=== PATIENT | female | born 1930 | race Caucasian/White ===

== ENCOUNTER 2018-12-03 06:36 | Inpatient (IN) | payer OTHER, MEDICARE ==
--- OUTSIDE RECORDS SUMMARY | 2018-12-03 06:38 | XMS REPORT ---
:1930 [facility] Address [address] [place] [address] Dr. Soto. [address] [place] [id number] Care Team Providers Name Role Phone Unavailable Unavailable Unavailable Problems This patient has no known problems. Allergies, Adverse Reactions, Alerts This patient has no known allergies or adverse reactions. Medications This patient has no known medications.
[2018-12-03 07:32] LABS: Absolute Lymphocytes (CBC) 0.6 K/uL (0.7-4.9); Absolute Monocytes 1.1 K/uL (0.1-1.3); Absolute Neutrophil 19.6 K/uL (1.8-8.0); Basophils % 0.4 % (0-1.3); Hematocrit 40.1 % (36.0-45.0); Lymphocytes % 2.9 % (15.3-44.8); Monocytes % 5.3 % (3.3-12.3); RBC Red Blood Cell Count 4.53 M/uL (3.86-4.86)
[2018-12-03] MEDS ORDERED: MORPHINE 2 MG/ML SYR ONE ×2 (07:40→09:23)
[2018-12-03 07:47] LABS: Albumin 3.8 g/dL (3.4-5.0); Bilirubin Direct 0.1 mg/dL (0-0.2); Bilirubin Total 0.5 mg/dL (0.2-1.0); Magnesium 2.1 mg/dL (1.8-2.4); Potassium 4.5 mmol/L (3.5-5.1); Protein, Total 7.7 g/dL (6.4-8.2); Troponin (Emerg Dept Use Only) 0.07 ng/mL (0.0-0.045)
[2018-12-03] MEDS ORDERED: PIPER/TAZO/NS 3.375gm 3.375 GM/100 ML BAG ONE (08:11)
[2018-12-03] MEDS ORDERED: NA CHLORIDE 0.9% 1,000 ML ONE (08:12)
--- NOTE | 2018-12-03 08:15 | RAD REPORT ---
EXAM DESCRIPTION: RAD - Chest Single View - 12/03/2018 6:52 am CLINICAL HISTORY: SOB Chest pain. COMPARISON: CHEST SINGLE VIEW dated 12/01/2014; CHEST SINGLE VIEW dated 11/30/2014; CHEST SINGLE VIEW dated 05/10/2013; CHEST SINGLE VIEW dated 05/09/2013 FINDINGS: Portable technique limits examination quality. The lungs are mildly emphysematous but grossly clear. The heart is upper limit normal size. No displa kelin fractures.Aortic atherosclerosis. IMPRESSION: Prominent COPD.
--- NOTE | 2018-12-03 08:17 | RAD REPORT ---
EXAM DESCRIPTION: CT - Abdomen Pelvis Wo Contrast - 12/03/2018 8:09 am CLINICAL HISTORY: Abdominal pain. ABD PAIN COMPARISON: CT ABD PELVIS W CONTRAST dated 11/27/2012 TECHNIQUE: CT imaging of the abdomen and pelvis was performed without contrast. Solid organ, bowel a nd vascular assessment is limited due to lack of IV and oral contrast. All CT scans are performed using dose optimization technique as appropriate and may include automated exposure control or mA/KV adjustment according to patient size. FINDINGS: Mild linear subsegmental atelectasis is present both lung bases. Pneumobilia is present in the liver with cholecystectomy clips seen. No aggressive liver lesion. The spleen, adrenal glands and kidneys are within normal limits. No hydronephrosis.Peripancreatic fat str anding is seen, greatest in the region of the pancreatic head and duodenal C-loop, suggesting acute p ancreatitis. No fluid collection to suggest pseudocyst. No bowel obstruction or free air. Moderate left lower quadrant small bowel parastomal hernia is seen. Scattered colonic diverticulosis. Aortic atherosclerosis. The osseous structures are within normal limits. IMPRESSION: Mild to moderate acute pancreatitis suspected. Correlation with amylase and lipase level s is advised. Cholecystectomy. A limited non-contrast examination was performed as detailed.
--- NOTE | 2018-12-03 08:26 | ER ---
Nurse's Notes [facility] Name: Lexi Wagner Age: 88 yrs Sex: Female : 1930 Arrival Date: 12/03/2018 Time: 06:37 Bed 6 Private MD: Diagnosis: Acute pancreatitis Presentation: 12/03 06:36 Presenting complaint: EMS states: Pt complaining of nausea and abdominal pain that ea started last night and got worse this morning. Transition of care: patient was not received from another setting of care. Onset of symptoms was December 03, 2018. Risk Assessment: Do you want to hurt yourself or someone else? Patient reports no desire to harm self or others. Initial Sepsis Screen: Does the patient meet any 2 criteria? No. Patient's initial sepsis screen is negative. Does the patient have a suspected source of infection? No. Patient's initial sepsis screen is negative. Care prior to arrival: None. 06:36 Method Of Arrival: EMS: [facility] ea 06:36 Acuity: LOKESH 3 ea Historical: - Allergies: 06:52 promethazine HCl; ea 06:52 meperidine HCl; ea - Home Meds: 06:52 losartan oral oral [Active]; levothyroxine oral for Hypothyroidism [Active]; ea - PMHx: 06:52 Hypothyroidism; Hypertension; ea - PSHx: 06:52 Cholecystectomy; Mastectomy, Left; Mastectomy, Right; Foot; Melanoma removed; Neck; ea Colostomy; - Immunization history:: Adult Immunizations up to date. - Social history:: Smoking status: Patient/guardian denies using tobacco. - Ebola Screening: : No symptoms or risks identified at this time. Screenin:55 Abuse screen: Denies threats or abuse. Nutritional screening: No deficits noted. ea Tuberculosis screening: No symptoms or risk factors identified. Fall Risk IV access (20 points). Assessment: 07:10 General: Appears uncomfortable, Behavior is calm, cooperative. Pain: Complains of pain aa5 in left upper quadrant and right upper quadrant Pain does not radiate. Pain currently is 10 out of 10 on a pain scale. Quality of pain is described as crampy, Pain began last night. Is continuous. Neuro: Level of Consciousness is awake, alert, obeys commands, Oriented to person, place, time, situation. Cardiovascular: Heart tones S1 S2 present Rhythm is sinus bradycardia. Respiratory: Airway is patent Respiratory effort is even, unlabored, Respiratory pattern is regular, symmetrical, Breath sounds are clear bilaterally. GI: Abdomen is round Colostomy site is clean and dry. Ostomy appliance is intact. Soft brown stool noted, pt denies diarrhea. Bowel sounds present X 4 quads. Abd is soft X 4 quads Abdomen is tender to palpation in right upper quadrant and left upper quadrant Reports nausea, vomiting. : No signs and/or symptoms were reported regarding the genitourinary system. EENT: No signs and/or symptoms were reported regarding the EENT system. Derm: Skin is pink, warm \\T\\ dry. Musculoskeletal: Range of motion: intact in all extremities. 07:30 Reassessment: Lactate recollected and sent to lab . aa5 07:38 Reassessment: Patient is alert, oriented x 3, equal unlabored respirations, skin aa5 warm/dry/pink. Pt encouraged to drink CT oral contrast. Pt states "I will try in a minute but I just can't do it right now". Pt notified of wait time for CT after finishing CT oral contrast, pt verbalized understanding. . 08:14 Reassessment: Patient is alert, oriented x 3, equal unlabored respirations, skin aa5 warm/dry/pink. Patient states feeling better. Pt back from CT scan (CT scan changed to no oral contrast) . Pain: Pain currently is 7 out of 10 on a pain scale. 08:32 Reassessment: Pt appears comfortable, resting in bed with eyes closed, respirations aa5 even and unlabored, skin is pink/warm/dry . 09:14 Reassessment: Patient and/or family updated on plan of care and expected duration. Pain aa5 level reassessed. Patient is alert, oriented x 3, equal unlabored respirations, skin warm/dry/pink. Awaiting room assignment. Pt states "I am hurting again". Rates pain a 9/10 on a pain scale. PILE DRIVING TECHNICIAN was notified and morphine was ordered. . Vital Signs: 06:36 BP 151 / 69; Pulse 60; Resp 21; Temp 98; Pulse Ox 95% on R/A; Weight 68.04 kg; Height 5 ea ft. 5 in. (165.10 cm); 07:38 BP 125 / 59; Pulse 59; Resp 18 S; Pulse Ox 99% on 2 lpm NC; aa5 08:33 BP 141 / 58; Pulse 59; Resp 16 S; Pulse Ox 98% on 2 lpm NC; aa5 06:36 Body Mass Index 24.96 (68.04 kg, 165.10 cm) ea 06:36 pt placed on 2 L of O2 per nasal cannula ea ED Course: 06:26 Patient has correct armband on for positive identification. Placed in gown. Bed in low ea position. Call light in reach. Side rails up X2. 06:36 Arm band placed on right wrist. Patient placed in an exam room, on a stretcher, on ea pulse oximetry. 06:37 Patient arrived in ED. am2 06:40 Della Marie FNP-C is PHCP. snw 06:40 Jose G Rankin MD is Attending Physician. snw 06:40 Inserted saline lock: 20 gauge in right forearm, using aseptic technique. Blood rr5 collected. 06:48 Triage completed. ea 06:50 X-ray completed. Portable x-ray completed in exam room. Patient tolerated procedure sg4 well. 06:52 XRAY Chest (1 view) In Process Unspecified. EDMS 07:00 Report received from JULIET Sorto and Abelardo RN. aa5 07:11 Miran Gibson, JULIET is Primary Nurse. aa5 08:10 Abdomen In Process Unspecified. EDMS 08:25 Ihsan Bolaños MD is Hospitalizing Provider. snw 09:35 No provider procedures requiring assistance completed. Patient admitted, IV remains in aa5 place. Administered Medications: 07:33 Drug: morphine 2 mg Route: IVP; Site: right forearm; aa5 07:38 Follow up: Response: No adverse reaction aa5 08:15 Drug: Zosyn 3.375 grams Route: IVPB; Infused Over: 60 mins; Site: right forearm; aa5 09:14 Follow up: Response: No adverse reaction; IV Status: Completed infusion aa5 08:27 Drug: NS 0.9% 1000 ml Route: IV; Rate: 75 ml/hr; Site: right forearm; aa5 09:30 Follow up: IV Status: Infusion continued upon admission aa5 09:14 Drug: morphine 2 mg Route: IVP; Site: right forearm; aa5 09:30 Follow up: Response: No adverse reaction; Pain is decreased aa5 Point of Care Testing: Blood Glucose: 07:13 Blood Glucose: 158 mg/dL; aa5 Ranges: Outcome: 08:25 Decision to Hospitalize by Provider. snw 09:35 Admitted to Med/surg accompanied by tech, via stretcher, with oxygen, with chart, aa5 Report called to JULIET Arboleda 09:35 Condition: stable 09:35 Instructed on the need for admit, Demonstrated understanding of instructions. 09:40 Patient left the ED. aa5 Signatures: Dispatcher [employer] EDMS Della Marie, WILDLIFE ECOLOGIST-C WILDLIFE ECOLOGIST-Csnw Mirna Gibson, RN RN aa5 Eva Albrecht Elena, RN RN Luz Maria Sandy 4 Abelardo Joya, RN RN rr5 Corrections: (The following items were deleted from the chart) 09:44 09:43 Patient left the ED. aa5 aa5
--- NOTE | 2018-12-03 08:26 | EDPHYS ---
Physician Documentation [facility] Name: Lexi Wagner Age: 88 yrs Sex: Female : 1930 Arrival Date: 12/03/2018 Time: 06:37 Bed 6 Private MD: Jose G Isaac HPI: 12/03 06:46 This 88 yrs old Female presents to ER via Unassigned with complaints of snw Abdominal Pain. 06:46 The patient presents with abdominal pain in the upper abdomen. Onset: The snw symptoms/episode began/occurred suddenly, last night. The symptoms do not radiate. Associated signs and symptoms: Pertinent positives: nausea and vomiting. The symptoms are described as constant. Modifying factors: The symptoms are alleviated by nothing. Severity of pain: At its worst the pain was moderate. The patient has experienced similar episodes in the past. The patient has not recently seen a physician, the patient's primary care provider is Dr. Garcia. hx of cody, colostomy, mastectomy. Pt denies fever, changes in consistency of stool from colostomy, bleeding. Historical: - Allergies: 06:52 promethazine HCl; ea 06:52 meperidine HCl; ea - Home Meds: 06:52 losartan oral oral [Active]; levothyroxine oral for Hypothyroidism [Active]; ea - PMHx: 06:52 Hypothyroidism; Hypertension; ea - PSHx: 06:52 Cholecystectomy; Mastectomy, Left; Mastectomy, Right; Foot; Melanoma removed; Neck; ea Colostomy; - Immunization history:: Adult Immunizations up to date. - Social history:: Smoking status: Patient/guardian denies using tobacco. - Ebola Screening: : No symptoms or risks identified at this time. ROS: 06:46 Constitutional: Negative for fever, chills, and weight loss, Eyes: Negative for injury, snw pain, redness, and discharge, ENT: Negative for injury, pain, and discharge, Neck: Negative for injury, pain, and swelling, Cardiovascular: Negative for chest pain, palpitations, and edema, Respiratory: Negative for shortness of breath, cough, wheezing, and pleuritic chest pain, Back: Negative for injury and pain, : Negative for injury, bleeding, discharge, and swelling, MS/Extremity: Negative for injury and deformity, Skin: Negative for injury, rash, and discoloration, Neuro: Negative for headache, weakness, numbness, tingling, and seizure. 06:46 Abdomen/GI: Positive for abdominal pain, nausea, vomiting. Exam: 06:43 Head/Face: Normocephalic, atraumatic. Eyes: Pupils equal round and reactive to light, snw extra-ocular motions intact. Lids and lashes normal. Conjunctiva and sclera are non-icteric and not injected. Cornea within normal limits. Periorbital areas with no swelling, redness, or edema. ENT: Nares patent. No nasal discharge, no septal abnormalities noted. Tympanic membranes are normal and external auditory canals are clear. Oropharynx with no redness, swelling, or masses, exudates, or evidence of obstruction, uvula midline. Mucous membranes moist. Neck: Trachea midline, no thyromegaly or masses palpated, and no cervical lymphadenopathy. Supple, full range of motion without nuchal rigidity, or vertebral point tenderness. No Meningismus. Chest/axilla: Normal chest wall appearance and motion. Nontender with no deformity. No lesions are appreciated. 06:43 Back: No spinal tenderness. No costovertebral tenderness. Full range of motion. MS/ Extremity: Pulses equal, no cyanosis. Neurovascular intact. Full, normal range of motion. Neuro: Awake and alert, GCS 15, oriented to person, place, time, and situation. Cranial nerves II-XII grossly intact. Motor strength 5/5 in all extremities. Sensory grossly intact. Cerebellar exam normal. Normal gait. 06:43 Constitutional: The patient appears alert, anxious, frail, pale. 06:43 Cardiovascular: Rate: bradycardic. 06:43 Respiratory: the patient does not display signs of respiratory distress, Respirations: shallow respirations, that is mild, Breath sounds: are clear throughout. 06:43 Abdomen/GI: Inspection: distension, that is moderate, in the right lower quadrant and left lower quadrant, Bowel sounds: diminished, in all quadrants, Palpation: mild abdominal tenderness, in the right upper quadrant and left upper quadrant, + colostomy. 06:43 Skin: Appearance: Color: pale. Vital Signs: 06:36 BP 151 / 69; Pulse 60; Resp 21; Temp 98; Pulse Ox 95% on R/A; Weight 68.04 kg; Height 5 ea ft. 5 in. (165.10 cm); 07:38 BP 125 / 59; Pulse 59; Resp 18 S; Pulse Ox 99% on 2 lpm NC; aa5 08:33 BP 141 / 58; Pulse 59; Resp 16 S; Pulse Ox 98% on 2 lpm NC; aa5 06:36 Body Mass Index 24.96 (68.04 kg, 165.10 cm) ea 06:36 pt placed on 2 L of O2 per nasal cannula ea MDM: 06:44 Patient medically screened. [facility] 08:26 Data reviewed: vital signs, nurses notes. Data interpreted: Pulse oximetry: on room air snw is 99 %. Interpretation: normal. Counseling: I had a detailed discussion with the patient and/or guardian regarding: the historical points, exam findings, and any diagnostic results supporting the discharge/admit diagnosis, lab results, radiology results, the need for further work-up and treatment in the hospital. Physician consultation: Ihsan Bolaños MD was called at 08:26, regarding admission, to the telemetry unit. 12/03 06:42 Order name: Basic Metabolic Panel; Complete Time: 07:48 snw 12/03 06:42 Order name: CBC with Diff; Complete Time: 09:33 snw 12/03 06:42 Order name: LFT's; Complete Time: 07:48 snw 12/03 06:42 Order name: Magnesium; Complete Time: 07:48 snw 12/03 06:42 Order name: NT PRO-BNP; Complete Time: 07:48 snw 12/03 06:42 Order name: PT-INR; Complete Time: 08:36 snw 12/03 06:42 Order name: Troponin (emerg Dept Use Only); Complete Time: 07:48 snw 12/03 06:42 Order name: XRAY Chest (1 view); Complete Time: 08:15 snw 12/03 06:42 Order name: Lipase; Complete Time: 07:48 snw 12/03 06:42 Order name: Blood Culture Adult (2) snw 12/03 06:42 Order name: Lactate; Complete Time: 08:01 snw 12/03 06:42 Order name: Procalcitonin; Complete Time: 08:15 snw 12/03 07:49 Order name: Manual Differential; Complete Time: 09:33 EDMS 12/03 06:42 Order name: EKG; Complete Time: 06:43 snw 12/03 06:42 Order name: Cardiac monitoring; Complete Time: 07:10 snw 12/03 06:42 Order name: EKG - Nurse/Tech; Complete Time: 07:26 snw 12/03 06:42 Order name: IV Saline Lock; Complete Time: 07:10 snw 12/03 06:42 Order name: Labs collected and sent; Complete Time: 07:10 snw 12/03 06:42 Order name: O2 Per Protocol; Complete Time: 07:05 snw 12/03 06:42 Order name: O2 Sat Monitoring; Complete Time: 07:05 snw 12/03 06:42 Order name: NPO; Complete Time: 07:05 snw 12/03 06:42 Order name: FSBS; Complete Time: 07:10 snw 12/03 08:09 Order name: Abdomen ; Complete Time: 08:19 EDMS Administered Medications: 07:33 Drug: morphine 2 mg Route: IVP; Site: right forearm; aa5 07:38 Follow up: Response: No adverse reaction aa5 08:15 Drug: Zosyn 3.375 grams Route: IVPB; Infused Over: 60 mins; Site: right forearm; aa5 09:14 Follow up: Response: No adverse reaction; IV Status: Completed infusion aa5 08:27 Drug: NS 0.9% 1000 ml Route: IV; Rate: 75 ml/hr; Site: right forearm; aa5 09:30 Follow up: IV Status: Infusion continued upon admission aa5 09:14 Drug: morphine 2 mg Route: IVP; Site: right forearm; aa5 09:30 Follow up: Response: No adverse reaction; Pain is decreased aa5 Point of Care Testing: Blood Glucose: 07:13 Blood Glucose: 158 mg/dL; aa5 Ranges: Critical Glucose Levels:Adult <50 mg/dl or >400 mg/dl <40 mg/dl or >180 mg/dl Disposition: 12/03/18 08:25 Hospitalization ordered by Ihsan Bolaños for Inpatient Admission. Preliminary diagnosis is Acute pancreatitis. - Bed requested for Telemetry/MedSurg (Inpatient). - Status is Inpatient Admission. aa5 - Condition is Stable. - Problem is new. - Symptoms are unchanged. UTI on Admission? No Addendum: 12/05/2018 11:18 Co-signature as Attending Physician, Jose G Rankin MD I agree with the assessment and c bhatt plan of care. Signatures: Dispatcher [employer] EDAR Kiki Brunner, RN Jose G An MD MD cha Therrien, Shelly, PROFESSIONAL BASS FISHERMAN-C PROFESSIONAL BASS FISHERMAN-Csnw Mirna Gibson, RN RN aa5 Noreen Dunbar RN RN ea Corrections: (The following items were deleted from the chart) 12/03 08:09 06:43 Abdomen Pelvis W Con+CT.RAD.BRZ ordered. EDAR EDMS 08:34 06:43 Abdomen Limited+US.RAD.BRZ ordered. EDAR EDMS 09:25 08:25 Hospitalization Ordered by Ihsan Bolaños MD for Inpatient Admission. Preliminary diagnosis is Acute pancreatitis. Bed requested for Telemetry/MedSurg (Inpatient). Status is Inpatient Admission. Condition is Stable. Problem is new. Symptoms are unchanged. UTI on Admission? No. snw 09:43 09:25 12/03/2018 08:25 Hospitalization Ordered by Ihsan Bolaños MD for Inpatient aa5 Admission. Preliminary diagnosis is Acute pancreatitis. Bed requested for Telemetry/MedSurg (Inpatient). Status is Inpatient Admission. Condition is Stable. Problem is new. Symptoms are unchanged. UTI on Admission? No.
[2018-12-03 08:32] LABS: Protime INR 1.19
--- NOTE | 2018-12-03 09:06 | P.HP ---
Certification for Inpatient Patient admitted to: Inpatient With expected LOS: >2 Midnights Practitioner: I am a practitioner with admitting privileges, knowledge of patient current condition, hospital course, and medical plan of care. Services: Services provided to patient in accordance with Admission requirements found in Title 42 Section 412.3 of the Code of Federal Regulations Patient History Date of Service: 12/03/18 Primary Care Provider: Dr. Quarles Reason for admission: Abdominal pain History of Present Illness: This is a 88 yr old female with a pmh of colectomy w/ colostomy bag, HTN, hx of breast cancer s/p mastectomy, s/p cholecystectomy in 2007 admitted for acute abdominal pain. Per patient, pain started last night. Describes it as sharp, acute, started at rest, across epigastric area w/ no radiation. Associated with nausea and vomiting. Denies any increased sob, chest pain, dizziness, headache, vision changes, syncopal/presyncopal episodes, diarrhea/constipation or complaints. In the ER: she was bradycardic (asymptomatic), other vital signs were stable. Labs were remarkable for a WBC count of 21.4 with a left shift, sodium of 135, creatinine of 1.67, [place]rop[place] 0.07[place] [address]. Her procal and lactate were normal. Her CT scan was remarkable for mild subsegmental atelectasis and mild to moderate pancreatitis. She recieved IV zosyn prior to her non contrast CT, IVF and IV morphine 2 mg. Zofran was held to her bradycardia and she is allergic to phenergan. At the time of my exam, pt was AAOx3, in mild-mod distress, did have some active non bilious non bloody vomiting. She was bradycardic (still asymptomatic ) and otherwise vital signs were stable. Allergies promethazine HCl [From Phenergan] Allergy (Mild, Verified 11/16/12 09:53) Shortness of breath meperidine HCl [From Demerol] Allergy (Unverified 12/16/14 12:31) Vomiting Phenergan-Codeine Allergy (Uncoded 12/16/14 12:31) seizures Home medications list reviewed: Yes Home Medications: Arformoterol Tartrate [Brovana] 15 mcg IH BID 11/16/12 Budesonide [Pulmicort] 0.5 mg IH BID 11/16/12 Levothyroxine [Synthroid*] 0.112 mg PO [id number] 11/16/12 Albuterol Inhaler [Ventolin Inhaler*] 2 puff IH Q6H PRN 05/09/13 Diltiazem HCl [Taztia Xt] 360 mg PO DAILY 05/09/13 Losartan/Hydrochlorothiazide [Losartan-Hctz 100-25 mg Tab] 1 each PO DAILY 05/09 levoFLOXacin [Levaquin*] 250 mg PO DAILY #7 tab 12/03/14 - Past Medical/Surgical History Diabetic: No -: colon ruptured w/ colostomy -: COPD idiopathic -: hypothyroid -: breast CA -: DVT -: melanoma -: colon rescetion, -: cheri masectomy -: ankle refusion -: cody - Social History Smoking Status: Never smoker Alcohol use: No CD- Drugs: No Caffeine use: No Review of Systems 10-point ROS is otherwise unremarkable Physical Examination - Physical Exam General: Alert, Oriented x3, Mild distress, Moderate distress HEENT: Atraumatic, PERRLA, Mucous membr. moist/pink, EOMI, Sclerae nonicteric Neck: Supple, 2+ carotid pulse no bruit, No LAD, Without JVD or thyroid abnormality Respiratory: Clear to auscultation bilaterally, Normal air movement Cardiovascular: Normal S1 S2, Irregular heart rate/rhythm (Bradycardic) Gastrointestinal: Normal bowel sounds, Other (colostomy in place, with stool ( non bloody), stoma normal), Tenderness (across epigastric area), Guarding Musculoskeletal: No tenderness Integumentary: No rashes Neurological: Normal speech, Normal strength at 5/5 x4 extr, Normal tone, Normal affect - Studies Laboratory Data (last 24 hrs) 12/03/18 06:40: PT 14.0 H, INR 1.19 12/03/18 06:40: WBC 21.4 H*, Hgb 13.3, Hct 40.1, Plt Count 305 12/03/18 06:40: Sodium 135 L, Potassium 4.5, BUN 37 H, Creatinine 1.67 H, Glucose 155 H, Magnesium 2.1, Total Bilirubin 0.5, AST 28, ALT 26, Alkaline Phosphatase 82, Lipase 06998 H Female Exam - Breasts Breasts: Other (B/L mastectomy) Assessment and Plan - Problems (Diagnosis) (1) Acute pancreatitis Current Visit: Yes Status: Active (2) ZAN (acute kidney injury) Current Visit: Yes Status: Acute (3) Elevated troponin Current Visit: Yes Status: Acute (4) Hypertension Current Visit: Yes Status: Chronic Qualifiers: Hypertension type: essential hypertension Qualified Code(s): I10 - Essential (primary) hypertension (5) Hx of breast cancer Current Visit: Yes Status: Chronic (6) History of colon resection Current Visit: No Status: Chronic (7) Colostomy in place Current Visit: No Status: Chronic (8) s/p laparoscopic cholecystectomy Current Visit: No Status: Acute (9) COPD (chronic obstructive pulmonary disease) Onset Date: 12/03/14 Current Visit: No Status: Chronic Qualifiers: Chronic bronchitis type: unspecified (10) Hypothyroid Current Visit: Yes Status: Chronic Qualifiers: Hypothyroidism type: unspecified Qualified Code(s): E03.9 - Hypothyroidism , unspecified - Plan This is a 88 yr old female with: Acute pancreatitis Admit to floor with tele Keep NPO. Start IVF Pain control. Is able to tolerate morphine. Will continue low dose as need. Hold zofran d/t bradycardia, unable to give phenergan as pt allergic. No antibiotics at this time Monitor labs. Serial Lipase Elevated trops Likely 2/2 ZAN Will trend and monitor Denies any cp at this time Acute kidney injury Likely 2/2 hypovolemia from vomiting and decreased PO Will continue IVF Monitor via AM labs Avoid nephrotoxic agents Colon resection w/ colostomy Stable Continue colostomy care as normal COPD Stable; Continue oxygen as needed, breathing treatments as needed Hypothyroid Stable, continue home medications Hypertension Stable, will restart home medications once tolerating PO Will use IV agents if needed till then Breast ca hx w/ B/L Mastectomy Stable Hx of lap cody s/p acute cholocystitis DVT Prophylaxis: Lovenox GI Prophylaxis: Protonix IV till tolerating PO Diet: NPO Dispo: Admit to floor, pending symptomatic improvement. Discharge Plan: Home - Advance Directives Does patient have a Living Will: No Does patient have a Durable POA for Healthcare: Yes Time Spent Managing Pts Care (In Minutes): 55
[2018-12-03 09:32] LABS: Blood Morphology Comment NOT SEEN (NOT SEEN); Platelet Estimate ADEQ
[2018-12-03] MEDS ORDERED: IPRATROPIUM BROM 0.5MG/2.5ML NEB PRN (09:54)
[2018-12-03] MEDS ORDERED: NA CHLORIDE 0.9% 1,000 ML IV SCH (09:54)
[2018-12-03] MEDS ORDERED: ALBUTEROL 2.5 MG/3 ML NEB SOL NEB PRN (09:54)
[2018-12-03 10:06] VITALS: BMI 30.5
[2018-12-03] MEDS: ENOXAPARIN 30 MG/0.3 ML SQ SCH (11:20)
[2018-12-03] MEDS: NA CHLORIDE 0.9% 1,000 ML IV SCH ×2 (12:22→17:13)
[2018-12-03] MEDS: LOSARTAN POTASSIUM 50 MG TABLET PO SCH (17:12)
[2018-12-03 20:06] LABS: Urine Appearance CLEAR; Urine Bilirubin NEGATIVE (NEG); Urine Blood TRACE (NEG); Urine Color YELLOW; Urine Glucose NEGATIVE (NEG); Urine Protein 2+ (NEG); Urine Specific Gravity 1.025 (1.005-1.030); Urine Urobilinogen 0.2 mg/dL (0.2-1.0); Urine pH 6.5 (5.0-7.0)
[2018-12-03 20:36] LABS: Urine Bacteria <20 /HPF (<20); Urine Culture Reflex Order NOT NEEDED; Urine RBC <5 /HPF (NONE SEEN)
--- NOTE | 2018-12-03 20:53 | RAD REPORT ---
EXAM DESCRIPTION: US - Abdomen Exam Complete - 12/03/2018 8:46 pm CLINICAL HISTORY: Abdominal pain. acute pancreatitis COMPARISON: Abdomen Pelvis Wo Contrast dated 12/03/2018 FINDINGS: The liver is normal in size, shape and echotexture. No focal liver lesions or intrahepatic biliary dilatation is seen. Cholecystectomy. Common bile duct is mildly enlarged measuring 9 mm. Both kidneys are normal in size, shape and echotexture. No hydronephrosis, focal lesion of concern or perinephric fluid. The spleen is normal in size measuring 7 cm. The pancreas and aorta are obscured by bowel gas. The visualized aspects of the IVC are grossly normal. IMPRESSION: Cholecystectomy. Common bile duct measures 9 mm, considered upper limit of normal.
[2018-12-03] MEDS ORDERED: METOPROLOL TARTRATE 5 MG/5 ML INJ IV STA (20:57)
[2018-12-03] MEDS ORDERED: HYDROMORPHONE HCL 1 MG/ML INJ IV PRN (22:23)
[2018-12-03] MEDS: ONDANSETRON 4 MG/2 ML VIAL IV PRN (22:59)
[2018-12-04] MEDS ORDERED: HYDROMORPHONE HCL 1 MG/ML INJ IV PRN (00:18)
[2018-12-04] MEDS: METOPROLOL TARTRATE 5 MG/5 ML INJ IV PRN (05:09)
[2018-12-04 05:58] LABS: Absolute Lymphocytes (CBC) 0.8 K/uL (0.7-4.9); Absolute Monocytes 2.3 K/uL (0.1-1.3); Absolute Neutrophil 26.2 K/uL (1.8-8.0); Basophils % 0.1 % (0-1.3); Hematocrit 41.2 % (36.0-45.0); Lymphocytes % 2.8 % (15.3-44.8); MPV 10.1 fL (7.6-11.3); Monocytes % 7.9 % (3.3-12.3); RBC Red Blood Cell Count 4.58 M/uL (3.86-4.86)
[2018-12-04 06:20] LABS: Bilirubin Total 0.7 mg/dL (0.2-1.0); Potassium 3.6 mmol/L (3.5-5.1); Protein, Total 6.7 g/dL (6.4-8.2)
[2018-12-04] MEDS ORDERED: CEFOXITIN 1 GM in NA CHLORIDE 0.9% 50 ML IVPB SCH (07:00)
[2018-12-04] MEDS ORDERED: NA CHLORIDE 0.9% 1,000 ML IV SCH (07:00)
[2018-12-04] MEDS: LOSARTAN POTASSIUM 50 MG TABLET PO SCH (08:08)
[2018-12-04] MEDS: ENOXAPARIN 30 MG/0.3 ML SQ SCH (08:08)
[2018-12-04 08:11] LABS: Blood Morphology Comment NOT SEEN (NOT SEEN); Platelet Estimate ADEQ; Toxic Granulation PRESENT
[2018-12-04] MEDS: CEFOXITIN/SWI 1gm 1 GM/10 ML SYR IV SCH ×2 (10:28→22:25)
--- NOTE | 2018-12-04 10:48 | P.PN ---
Subjective Date of Service: 12/04/18 Primary Care Provider: Dr. Quarles Chief Complaint: Abdominal pain Subjective: No new changes (Still does not feel well. WBC increased since yesterday, 21 to 29K. IVFs at 125 cc/o with decreased BUN/Cr 37/1.7 to 35/1.2. But she has elevated Troponin I yesterday.) Review of Systems 10-point ROS is otherwise unremarkable General: Weakness, Malaise Gastrointestinal: Abdominal Pain (improved) Physical Examination - Vital Signs Temperature: 98.3 F Blood Pressure: 147/77 Pulse: 77 Respirations: 16 Pulse Ox (%): 97 - Physical Exam General: Alert, In no apparent distress, Oriented x3, Cooperative HEENT: Atraumatic, Normocephalic, PERRLA, EOMI Neck: Supple Respiratory: Normal air movement Gastrointestinal: No rebound, No guarding, Tenderness (mild at most) Neurological: Normal speech Assessment And Plan - Current Problems (Diagnosis) (1) Acute pancreatitis Current Visit: Yes Status: Active Comment: WBC increasing 21 to 29K. (2) ZAN (acute kidney injury) Current Visit: Yes Status: Acute Comment: Slowly improving with IVFs. (3) Elevated troponin Current Visit: Yes Status: Acute (4) Hypertension Current Visit: Yes Status: Chronic Qualifiers: Hypertension type: essential hypertension Qualified Code(s): I10 - Essential (primary) hypertension (5) History of colon resection Current Visit: No Status: Chronic - Plan REC: 1) check lipase 2) increase IVFs 3) check CXR 4) check EKG, echocardiogram with elevated Trop Is & consider cardiology consult 5) check U/A with increasing WBC
[2018-12-04] MEDS: Ringers Lactate 1,000 ML IV SCH ×2 (11:25→16:53)
--- NOTE | 2018-12-04 11:52 | RAD REPORT ---
EXAM DESCRIPTION: RAD - Chest Single View - 12/04/2018 11:35 am CLINICAL HISTORY: Shortness of breath COMPARISON: December 03 TECHNIQUE: AP portable chest image was obtained 1131 hours . FINDINGS: Baseline fibrotic lung changes are present. Patchy left lung base opacification present. P attern is not substantially different but can be monitored. Patient has scarring or atelectasis leiva e in the posterior left base on the prior day CT study. Heart and vasculature are normal. No measurable pleural effusion and no pneumothorax. No acute bony abnormality seen. No acute aortic findings suspected. IMPRESSION: No acute cardiopulmonary process. Chest findings are not substantially different from comparison. Left base can be monitored.
[2018-12-04] MEDS ORDERED: CEFOXITIN SODIUM 1 GM/VIAL IVPB SCH (12:00)
--- NOTE | 2018-12-04 17:29 | P.PN ---
Subjective Date of Service: 12/04/18 Primary Care Provider: Dr. Quarles Chief Complaint: Abdominal pain Subjective: Improving Patient seen and examined at bedside. Chart reviewed and case discussed with nursing staff. Pain slightly improved. Review of Systems 10-point ROS is otherwise unremarkable Physical Examination - Vital Signs Temperature: 97.6 F Blood Pressure: 175/79 Pulse: 89 Respirations: 18 Pulse Ox (%): 93 Assessment And Plan - Current Problems (Diagnosis) (1) Acute pancreatitis Current Visit: Yes Status: Active (2) ZAN (acute kidney injury) Current Visit: Yes Status: Acute (3) Elevated troponin Current Visit: Yes Status: Acute (4) Hypertension Current Visit: Yes Status: Chronic Qualifiers: Hypertension type: essential hypertension Qualified Code(s): I10 - Essential (primary) hypertension (5) Hx of breast cancer Current Visit: Yes Status: Chronic (6) History of colon resection Current Visit: No Status: Chronic (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 Continue IVF Pain control. Is able to tolerate morphine. Will continue low dose as need. Hold zofran d/t bradycardia, unable to give phenergan as pt allergic. No antibiotics at this time Monitor labs. Lipase in normal range now. GI consulted, recommendations appreciated. MRCP ordered, pending. Elevated trops continues to stay elevated after Cr resolved. EKG, CXR, ECHO Cardiology consult. Will trend and monitor Denies any cp at this time Acute kidney injury, Resolved. Likely 2/2 hypovolemia from vomiting and decreased PO Continue to monitor. Avoid nephrotoxic agents Colon resection w/ colostomy Stable Continue colostomy care as normal COPD Stable; Continue oxygen as needed, breathing treatments as needed Hypothyroid Stable, continue home medications Hypertension Stable, will restart home medications once tolerating PO Will use IV agents if needed till then Breast ca hx w/ B/L Mastectomy Stable Hx of lap cody s/p acute cholocystitis Obesity, BMI 30.6 DVT Prophylaxis: Lovenox GI Prophylaxis: Protonix IV till tolerating PO Diet: NPO Dispo: Admit to floor, pending symptomatic improvement.
[2018-12-05] MEDS: METOPROLOL TARTRATE 5 MG/5 ML INJ IV PRN ×2 (02:12→11:14)
[2018-12-05] MEDS: Ringers Lactate 1,000 ML IV SCH ×4 (02:21→22:04)
[2018-12-05 04:26] LABS: Absolute Lymphocytes (CBC) 0.9 K/uL (0.7-4.9); Absolute Monocytes 3.4 K/uL (0.1-1.3); Absolute Neutrophil 33.3 K/uL (1.8-8.0); Basophils % 0.1 % (0-1.3); Hematocrit 38.2 % (36.0-45.0); Lymphocytes % 2.5 % (15.3-44.8); MPV 10.1 fL (7.6-11.3); Monocytes % 8.9 % (3.3-12.3); RBC Red Blood Cell Count 4.22 M/uL (3.86-4.86)
[2018-12-05 04:38] LABS: Albumin 2.5 g/dL (3.4-5.0); Bilirubin Total 0.6 mg/dL (0.2-1.0); Potassium 3.6 mmol/L (3.5-5.1)
[2018-12-05 05:30] LABS: Blood Morphology Comment NOT SEEN (NOT SEEN); Platelet Estimate ADEQ
[2018-12-05] MEDS ORDERED: POTASSIUM 25 MEQ EFFERV TAB PO ONE (05:30)
[2018-12-05] MEDS: LEVOTHYROXINE SOD 0.112 MG TAB PO SCH (06:30)
[2018-12-05 07:17] LABS: Phosphorus 2.4 mg/dL (2.5-4.9)
[2018-12-05] MEDS ORDERED: POTASSIUM PHOS IN 0.9 % NACL 15 MMOL/250 ML BAG IV ONE (08:03)
[2018-12-05 08:17] LABS: Albumin 2.6 g/dL (3.4-5.0); Bilirubin Direct 0.2 mg/dL (0-0.2); Bilirubin Total 0.7 mg/dL (0.2-1.0); Protein, Total 6.4 g/dL (6.4-8.2)
[2018-12-05] MEDS ORDERED: KCL 20 MEQ/100 mL IVPB 20 MEQ/100 ML BAG IV SCH (08:30)
--- NOTE | 2018-12-05 08:58 | RAD REPORT ---
EXAM DESCRIPTION: MRICholangiogram12/05/2018 8:46 am CLINICAL HISTORY: Abdominal pain COMPARISON: December 03, 2018 cat scan TECHNIQUE: Magnetic resonance cholangiogram was performed. Mip reconstruction performed FINDINGS: Gallbladder has been removed. . Common bile duct is upper limits normal caliber. A filling defect is not seen. Mild narrowing of the distal common bile duct. Pancreatic duct is normal caliber. The pancreas is enlarged with peripancreatic stranding. Small amount of ascites IMPRESSION: Cholecystectomy. Mild narrowing of the distal common bile duct probably indicating a mild stricture secondary to pancr eatitis
[2018-12-05] MEDS: DILTIAZEM HCL 180 MG SR CAP PO SCH (09:00)
[2018-12-05] MEDS: LOSARTAN POTASSIUM 50 MG TABLET PO SCH (09:00)
[2018-12-05] MEDS: hydroCHLOROthiazide 25 MG TAB PO SCH (09:00)
--- NOTE | 2018-12-05 09:00 | RAD REPORT ---
EXAM DESCRIPTION: Jeri Single View12/05/2018 8:47 am CLINICAL HISTORY: Elevated white count COMPARISON: December 03, 2018 FINDINGS: The lungs appear clear of acute infiltrate. The heart is mildly enlarged IMPRESSION: No acute abnormalities displayed
[2018-12-05] MEDS: CEFOXITIN/SWI 1gm 1 GM/10 ML SYR IV SCH ×2 (09:38→22:05)
[2018-12-05] MEDS: ENOXAPARIN 30 MG/0.3 ML SQ SCH (09:39)
[2018-12-05 09:42] LABS: Urine Appearance CLEAR; Urine Bilirubin NEGATIVE (NEG); Urine Blood TRACE (NEG); Urine Color DK YELLOW; Urine Glucose NEGATIVE (NEG); Urine Protein 2+ (NEG); Urine Specific Gravity 1.025 (1.005-1.030); Urine Urobilinogen 0.2 mg/dL (0.2-1.0)
[2018-12-05 09:49] LABS: Urine Amorphous Sediment 1+ /HPF (NONE SEEN); Urine Bacteria <20 /HPF (<20); Urine Culture Reflex Order NOT NEEDED
--- NOTE | 2018-12-05 12:57 | ECHO ---
HEIGHT: 5 ft 5 in WEIGHT: 183 lb 9.6 oz DATE OF STUDY: 12/05/[address]: David Whalen MD 2-DIMENSIONAL: YES M.MODE: YES DOPPLER: YES COLOR FLOW: YES TDS: NO PORTABLE: NO DEFINITY: NO BUBBLE STUDY: NO DIAGNOSIS: ELEVATED TROPONIN CARDIAC HISTORY: CATHERIZATION: NO SURGERY: NO PROSTHETIC VALVE: NO PACEMAKER: YES MEASUREMENTS (cm) DIASTOLIC (NORMALS) SYSTOLIC (NORMALS) IVSd 1.1 (0.6-1.2) LA Diam (1.9-4.0) LVEF 63% LVIDd 4.2 (3.5-5.7) LVIDs 2.8 (2.0-3.5) %FS 34% LVPWd 1.2 (0.6-1.2) Ao Diam 2.2 (2.0-3.7) 2 DIMENSIONAL ASSESSMENT: RIGHT ATRIUM: DILATED LEFT ATRIUM: DILATED RIGHT VENTRICLE: PACEMAKER CATHETER LEFT VENTRICLE: NORMAL TRICUSPID VALVE: NORMAL MITRAL VALVE: NORMAL PULMONIC VALVE: NORMAL AORTIC VALVE: NORMAL PERICARDIAL EFFUSION: NONE AORTIC ROOT: NORMAL LEFT VENTRICULAR WALL MOTION: NORMAL. DOPPLER/COLOR FLOW: MILD MITRAL AND TRICUSPID REGURGITATION. ESTIMATED RIGHT VENTRICULAR SYSTOLIC PRESSURE 38mmHg (MILD PULMONARY HYPERTENSION). COMMENTS: NORMAL LEFT VENTRICULAR EJECTION FRACTION. DILATED LEFT AND RIGHT ATRIUM. PACEMAKER IN RIGHT VENTRICLE. MILD MITRAL AND TRICUSPID REGURGITATION. MILD PULMONARY HYPERTENSION. TECHNOLOGIST: YANELI RODRIGES
--- NOTE | 2018-12-05 15:36 | RAD REPORT ---
EXAM DESCRIPTION: CT - Abdomen W Contrast CLINICAL HISTORY: pancolitis Abdominal pain COMPARISON: Abdomen Pelvis Wo Contrast dated 12/03/[address] scans are performed using dose optimization technique as appropriate and may includ e automated exposure control or mA/KV adjustment according to patient size. FINDINGS: Mild linear subsegmental atelectasis is present in both lung bases. Moderate inflammatory changes are seen surrounding the pancreas compatible with acute pancreatitis. T here is hypoenhancement in the region of the pancreatic neck involving a 2.5 cm length of the pancrea tic parenchyma, compatible with mild pancreatic necrosis. No pseudocyst or portal vein thrombus. The gallbladder appears absent. The spleen, adrenal glands and kidneys show no acute process. A mild ileus of the duodenum is identif ied. Scattered colonic diverticulosis without diverticulitis. No significant adenopathy in the abdomen. No significant bony finding. 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
[2018-12-05] MEDS: HYDRALAZINE HCL 20 MG/ML VIAL IV PRN ×2 (16:03→22:05)
--- NOTE | 2018-12-05 19:36 | P.PN ---
Subjective Date of Service: 12/05/18 Primary Care Provider: Dr. Quarles Chief Complaint: Abdominal pain Subjective: Improving Patient seen and examined at bedside. Chart reviewed and case discussed with nursing staff. Pain slightly improved. Worsening leukocytosis Review of Systems 10-point ROS is otherwise unremarkable Physical Examination - Vital Signs Temperature: 98.4 F Blood Pressure: 132/90 Pulse: 96 Respirations: 18 Pulse Ox (%): 97 - Physical Exam General: Alert, In no apparent distress, Oriented x3 Cardiovascular: Edema (Bilateral lower extremity) Gastrointestinal: Other (Colostomy bag in place), Tenderness (Mild) Assessment And Plan - Current Problems (Diagnosis) (1) Acute pancreatitis Current Visit: Yes Status: Active (2) ZAN (acute kidney injury) Current Visit: Yes Status: Acute (3) Elevated troponin Current Visit: Yes Status: Acute (4) Hypertension Current Visit: Yes Status: Chronic Qualifiers: Hypertension type: essential hypertension Qualified Code(s): I10 - Essential (primary) hypertension (5) Hx of breast cancer Current Visit: Yes Status: Chronic (6) History of colon resection Current Visit: No Status: Chronic (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 Continue IVF Pain control. Is able to tolerate morphine. Will continue low dose as need. Hold zofran d/t bradycardia, unable to give phenergan as pt allergic. Currently on antibiotics. Will continue as worsening leukocytosis. Urine culture ordered, cath urine. Monitor labs. Lipase in normal range now. GI consulted, recommendations appreciated. Will advance diet whenever GI recommends. MRCP ordered, pending. Elevated trops continues to stay elevated after Cr resolved. Echocardiogram done, mild pulmonary hypertension, otherwise normal. Cardiology consult. Denies any cp at this time Acute kidney injury, Resolved. Likely 2/2 hypovolemia from vomiting and decreased PO Continue to monitor. Avoid nephrotoxic agents Colon resection w/ colostomy Stable Continue colostomy care as normal COPD Stable; Continue oxygen as needed, breathing treatments as needed Hypothyroid Stable, continue home medications Hypertension Stable, will restart home medications once tolerating PO Will use IV agents if needed till then Breast ca hx w/ B/L Mastectomy Stable Hx of lap cody s/p acute cholocystitis Obesity, BMI 30.6 DVT Prophylaxis: Lovenox GI Prophylaxis: Protonix IV till tolerating PO Diet: NPO. Dispo: Admit to floor, pending symptomatic improvement and GI evaluation.
[2018-12-05] MEDS: BUDESONIDE 0.25 MG/2 ML NEB NEB SCH (20:00)
[2018-12-05] MEDS: ARFORMOTEROL TARTRATE 15 MCG/2 ML VIAL.NEB NEB SCH (20:06)
[2018-12-06] MEDS ORDERED: Meropenem 1000 MG/VIAL IV SCH (01:00)
[2018-12-06] MEDS: Meropenem 1,000 MG in NA CHLORIDE 0.9% 100 ML IV SCH ×3 (01:07→21:42)
[2018-12-06] MEDS ORDERED: Meropenem 1 GM/100 ML BAG ONE (01:15)
[2018-12-06] MEDS: Ringers Lactate 1,000 ML IV SCH ×4 (03:00→18:23)
[2018-12-06] MEDS: LEVOTHYROXINE SOD 0.112 MG TAB PO SCH (04:09)
[2018-12-06] MEDS: HYDRALAZINE HCL 20 MG/ML VIAL IV PRN (05:05)
[2018-12-06 06:12] LABS: Absolute Monocytes 2.3 K/uL (0.1-1.3); Absolute Neutrophil 25.2 K/uL (1.8-8.0); Basophils % 0.1 % (0-1.3); Eosinophils % 0.2 % (0-4.4); Lymphocytes % 3.4 % (15.3-44.8); MPV 10.2 fL (7.6-11.3); RBC Red Blood Cell Count 4.39 M/uL (3.86-4.86)
[2018-12-06 06:39] LABS: Albumin 2.2 g/dL (3.4-5.0); Bilirubin Total 0.7 mg/dL (0.2-1.0); Magnesium 1.9 mg/dL (1.8-2.4); Phosphorus 1.8 mg/dL (2.5-4.9); Potassium 4.5 mmol/L (3.5-5.1); Protein, Total 5.9 g/dL (6.4-8.2)
[2018-12-06] MEDS: ARFORMOTEROL TARTRATE 15 MCG/2 ML VIAL.NEB NEB SCH ×2 (07:46→20:00)
[2018-12-06] MEDS: BUDESONIDE 0.25 MG/2 ML NEB NEB SCH ×2 (07:46→20:00)
[2018-12-06] MEDS: CEFOXITIN/SWI 1gm 1 GM/10 ML SYR IV SCH ×2 (07:54→21:42)
[2018-12-06] MEDS: ENOXAPARIN 30 MG/0.3 ML SQ SCH (07:54)
[2018-12-06] MEDS ORDERED: SODIUM PHOSPHATE 15 MM in NA CHLORIDE 0.9% 250 ML IV ONE (08:00)
[2018-12-06] MEDS ORDERED: POTASSIUM PHOS IN 0.9 % NACL 15 MMOL/250 ML BAG IV ONE (08:00)
[2018-12-06] MEDS: LOSARTAN POTASSIUM 50 MG TABLET PO SCH (09:23)
[2018-12-06] MEDS: DILTIAZEM HCL 180 MG SR CAP PO SCH (09:23)
[2018-12-06] MEDS: hydroCHLOROthiazide 25 MG TAB PO SCH (09:24)
[2018-12-06] MEDS: METOPROLOL TARTRATE 5 MG/5 ML INJ IV PRN (11:42)
[2018-12-06] MEDS: ONDANSETRON 4 MG/2 ML VIAL IV PRN ×2 (12:53→17:32)
[2018-12-06] MEDS ORDERED: HYDRALAZINE HCL 20 MG/ML VIAL IV ONE (13:00)
--- NOTE | 2018-12-06 13:03 | P.PN ---
Subjective Date of Service: 12/06/18 Primary Care Provider: Dr. Quarles Chief Complaint: Abdominal pain Subjective: Improving (WBC finally has turned down from 37.7 to 28.6K with start of Merrem yesterday. Lipase normal today at 198.) Physical Examination - Vital Signs Temperature: 98.6 F Blood Pressure: 194/81 Pulse: 100 Respirations: 18 Pulse Ox (%): 98 Assessment And Plan - Current Problems (Diagnosis) (1) Acute pancreatitis Current Visit: Yes Status: Active Comment: WBC decreasing 37.7 to 28.6K with start of Merrem on 12-05-18. (2) ZAN (acute kidney injury) Current Visit: Yes Status: Acute Comment: Cr now normal. (3) Elevated troponin Current Visit: Yes Status: Acute (4) Hypertension Current Visit: Yes Status: Chronic Qualifiers: Hypertension type: essential hypertension Qualified Code(s): I10 - Essential (primary) hypertension (5) History of colon resection Current Visit: No Status: Chronic - Plan REC: 1) check lipase 2) continue IV antibiotics 3) start clear liquids
--- NOTE | 2018-12-06 21:00 | PN ---
Code Status: Full. Subjective: The patient is seen and examined, chart reviewed and case discussed with RN. The patien t denies any significant pain. Medications: List reviewed. Physical Examination: Vital Signs: Temperature 98.6, heart rate 100, blood pressure 194/81, respirations 18, O2 98% on 2 L via nasal cannula. General: Awake, alert, oriented, elderly female, obese. CV: S1, S2. Sinus tachycardia. Peripheral pulses present. Respiratory: Moving air well bilaterally. No wheezing or stridor. Gastrointestinal: Abdomen is soft, nontender, nondistended. Positive bowel sounds. Extremities: No clubbing, cyanosis, or edema. Neurologic: Nonfocal. Laboratory Data: WBC 28.6, H and H 12.9 and 39, platelets 230, neutrophils 88%. Sodium 138, potassi um 4.5, chloride 104, CO2 24, BUN 35, creatinine 1.03, glucose 99, calcium 7.4, phosphorus 1.8, album in 2.2. Blood cultures, no growth to date. MRCP shows mild narrowing of the distal common bile duct probably indicating a mild stricture secondary to pancreatitis. Assessment And Plan: An 88-year-old female with: 1.Acute pancreatitis. Lipase now normalized. MRCP does show some stricture of the common bile duct . Appreciate Dr. Whalen's input. Continue IV meropenem. WBC count still elevated. Cultures are ne gative. The patient to be started on clear liquids. 2.Elevated troponin. Echocardiogram does not show any severe hypokinesis. Does show some mild pulm onary hypertension. No acute chest pain at this time. Troponin back down to 0.08. The patient will need outpatient cardiology consultation. 3.Acute kidney injury, resolved, likely secondary to hypovolemia from decreased p.o. intake, nausea, vomiting. We will continue to monitor. Avoid NSAIDs. 4.Severe protein-calorie malnutrition. Albumin is 2.2. 5.History of colon resection with colostomy. 6.Chronic obstructive pulmonary disease, chronic bronchitis. We will continue with O2 as needed. T he patient currently on 2 L. Continue albuterol p.r.n. stable. 7.Hypothyroidism, stable. Continue home medications. 8.Essential hypertension, uncontrolled. We will add hydralazine IV and resume home medications. 9.History of breast cancer, status post bilateral mastectomy, stable. 10.History of laparoscopic cholecystectomy. 11.Obesity, BMI 30.6. GI and DVT prophylaxis with Lovenox and Protonix. Plan: Appreciate GI recommendations for now. Clear liquids. Continue IV antibiotics. Lovenox for deep venous thrombosis prophylaxis and IV fluids, pain control. NAYELI Voice ID: [id number] Report ID: [id number]
[2018-12-07] MEDS: Ringers Lactate 1,000 ML IV SCH ×3 (03:00→19:00)
[2018-12-07] MEDS: LEVOTHYROXINE SOD 0.112 MG TAB PO SCH (06:05)
[2018-12-07 06:35] LABS: Absolute Lymphocytes (CBC) 0.8 K/uL (0.7-4.9); Absolute Monocytes 1.9 K/uL (0.1-1.3); Absolute Neutrophil 18.9 K/uL (1.8-8.0); Basophils % 0.3 % (0-1.3); Eosinophils % 0.6 % (0-4.4); Hematocrit 36.8 % (36.0-45.0); Lymphocytes % 3.7 % (15.3-44.8); MPV 9.9 fL (7.6-11.3); Monocytes % 8.8 % (3.3-12.3); RBC Red Blood Cell Count 4.14 M/uL (3.86-4.86)
[2018-12-07 06:59] LABS: Phosphorus 2.1 mg/dL (2.5-4.9); Potassium 3.5 mmol/L (3.5-5.1)
[2018-12-07] MEDS: ARFORMOTEROL TARTRATE 15 MCG/2 ML VIAL.NEB NEB SCH ×2 (07:45→20:00)
[2018-12-07] MEDS: BUDESONIDE 0.25 MG/2 ML NEB NEB SCH ×2 (07:45→20:00)
[2018-12-07] MEDS ORDERED: POTASSIUM PHOS IN 0.9 % NACL 15 MMOL/250 ML BAG IV ONE (08:00)
[2018-12-07] MEDS: DILTIAZEM HCL 180 MG SR CAP PO SCH (08:05)
[2018-12-07] MEDS: hydroCHLOROthiazide 25 MG TAB PO SCH (08:05)
[2018-12-07] MEDS: LOSARTAN POTASSIUM 50 MG TABLET PO SCH (08:05)
[2018-12-07] MEDS: Meropenem 1,000 MG in NA CHLORIDE 0.9% 100 ML IV SCH ×2 (08:05→20:31)
[2018-12-07] MEDS: ENOXAPARIN 30 MG/0.3 ML SQ SCH (08:06)
[2018-12-07] MEDS: ONDANSETRON 4 MG/2 ML VIAL IV PRN ×2 (08:21→20:30)
[2018-12-07] MEDS: CEFOXITIN/SWI 1gm 1 GM/10 ML SYR IV SCH ×2 (09:01→20:32)
[2018-12-07] MEDS: HYDRALAZINE HCL 20 MG/ML VIAL IV PRN (12:23)
--- NOTE | 2018-12-07 12:40 | P.PN ---
Subjective Date of Service: 12/08/18 Primary Care Provider: Dr. Quarles Chief Complaint: Abdominal pain Subjective: Improving (Feels more energetic today after CLs started. No abdominal pain. CT did show necrosis in the neck of the pancreas. WBC continues to decline from 37.7 to 28.6 to 21.8 today on IV antibiotics.) Review of Systems 10-point ROS is otherwise unremarkable General: Weakness (Improved) Gastrointestinal: Abdominal Pain (Decreased) Physical Examination - Vital Signs Temperature: 98.1 F Blood Pressure: 150/66 Pulse: 84 Respirations: 20 Pulse Ox (%): 100 - Physical Exam General: Alert, In no apparent distress, Oriented x3, Cooperative HEENT: Atraumatic, Normocephalic, PERRLA, EOMI Neck: Supple Respiratory: Diminished Cardiovascular: Normal pulses Gastrointestinal: No rebound, No guarding (obese), Tenderness (Improved) Neurological: Normal speech Assessment And Plan - Current Problems (Diagnosis) (1) Acute pancreatitis Current Visit: Yes Status: Active Comment: WBC decreasing on IV antibiotics (2) ZAN (acute kidney injury) Current Visit: Yes Status: Acute Comment: Cr now normal. (3) Elevated troponin Current Visit: Yes Status: Acute (4) Hypertension Current Visit: Yes Status: Chronic Qualifiers: Hypertension type: essential hypertension Qualified Code(s): I10 - Essential (primary) hypertension (5) History of colon resection Current Visit: No Status: Chronic - Plan REC: 1) check lipase 2) continue IV antibiotics & IVFs 3) attempt FLs & consider pancreatic enzyme supplements
[2018-12-07 12:52] LABS: Albumin 2.1 g/dL (3.4-5.0); Bilirubin Direct 0.2 mg/dL (0-0.2); Bilirubin Total 0.5 mg/dL (0.2-1.0); Protein, Total 5.7 g/dL (6.4-8.2)
--- NOTE | 2018-12-07 21:51 | PN ---
Date of Progress Note: 12/07/2018 Subjective: The patient is seen and examined. Chart reviewed and case discussed with RN and Dr. Gustabo elkins. The patient's son at the bedside. No significant complaints. The patient states her abdominal pain is better, not really able to tolerate clear liquids, but has not thrown up. Does report some nausea. Medications: List reviewed. Physical Examination: Vital Signs: Temperature 98.1, heart rate 84, blood pressure 150/66, respirations 20, O2 100% on 2 L via nasal cannula. General: Awake, alert, oriented x3 elderly female, obese, ill-appearing. CV: S1, S2. Regular rate and rhythm. Peripheral pulses present. Respiratory: Moving air well bilaterally. No wheezing or stridor. Gastrointestinal: Abdomen is soft. Mild distention. Mild tenderness to palpation. No rebound or g uarding. Bowel sounds positive. Extremities: No clubbing, cyanosis, edema. Neuro: Nonfocal. Laboratory Data: Sodium 137, potassium 3.5, chloride 101, CO2 27, BUN 39, creatinine 1.11, glucose 1 08, calcium 7.7, phosphorus 2.1, albumin 2.1. WBC 21.8, H and H 12.3 and 36.8, platelets 289, neutro phils 86.6%. Blood cultures, no growth to date. Assessment And Plan: An 88-year-old female with: 1.Acute pancreatitis. Lipase now normalized. The patient did have some common bile duct stricture, likely secondary to the pancreatitis on MRCP. We will continue IV meropenem. Appreciate Dr. Whalen 's input. White blood cell count still elevated, however, trending down. The patient is now afebril e, not really tolerating clear liquids. Therefore, we will not advance diet at this time. Continue antiemetics. 2.Elevated troponin. Echocardiogram shows normal EF. No hypokinesis. No chest pain at this point. Follow up with Cardiology as an outpatient. 3.Hypophosphatemia. We will replace and monitor. 4.Acute kidney injury, resolved, secondary to hypovolemia from decreased p.o. intake, nausea, and vo miting. Continue to monitor creatinine and avoid NSAIDs. 5.Severe protein-calorie malnutrition. Albumin is 2.1. 6.History of colon resection with colostomy, stable. 7.Chronic obstructive pulmonary disease, chronic bronchitis. Continue with supplemental oxygen as n eeded. Albuterol p.r.n. 8.Hypothyroidism, stable. Continue home medication. 9.Essential hypertension, not well controlled. IV hydralazine has been added. The patient took her blood pressure medications today, which improved. 10.History of breast cancer status post bilateral mastectomy, stable. 11.History of laparoscopic cholecystectomy. 12.Obesity, BMI 30.6. Gastrointestinal and deep venous thrombosis prophylaxis with Lovenox and Prot maria de jesus. Plan: Continue IV antibiotics, likely discharge in the next 48 to 72 hours depending on clinical res brunilda. /ANTHONY Voice ID: [id number] Report ID: [id number]
[2018-12-08] MEDS: Ringers Lactate 1,000 ML IV SCH ×4 (00:18→19:30)
[2018-12-08] MEDS: HYDRALAZINE HCL 20 MG/ML VIAL IV PRN (00:18)
[2018-12-08 04:33] LABS: Absolute Lymphocytes (CBC) 0.8 K/uL (0.7-4.9); Absolute Monocytes 2.3 K/uL (0.1-1.3); Absolute Neutrophil 19.4 K/uL (1.8-8.0); Basophils % 0.2 % (0-1.3); Eosinophils % 0.8 % (0-4.4); Hematocrit 34.7 % (36.0-45.0); Lymphocytes % 3.4 % (15.3-44.8); MPV 9.9 fL (7.6-11.3); RBC Red Blood Cell Count 3.93 M/uL (3.86-4.86)
[2018-12-08 05:02] LABS: Phosphorus 2.2 mg/dL (2.5-4.9); Potassium 3.6 mmol/L (3.5-5.1)
[2018-12-08 05:17] LABS: Blood Morphology Comment NOT SEEN (NOT SEEN); Platelet Estimate ADEQ
[2018-12-08] MEDS ORDERED: POTASSIUM PHOS IN 0.9 % NACL 15 MMOL/250 ML BAG IV ONE (05:36)
[2018-12-08] MEDS: LEVOTHYROXINE SOD 0.112 MG TAB PO SCH (06:21)
[2018-12-08] MEDS: BUDESONIDE 0.25 MG/2 ML NEB NEB SCH ×2 (08:11→20:00)
[2018-12-08] MEDS: ARFORMOTEROL TARTRATE 15 MCG/2 ML VIAL.NEB NEB SCH ×2 (08:11→20:00)
[2018-12-08] MEDS: DILTIAZEM HCL 180 MG SR CAP PO SCH (09:36)
[2018-12-08] MEDS: hydroCHLOROthiazide 25 MG TAB PO SCH (09:38)
[2018-12-08] MEDS: LOSARTAN POTASSIUM 50 MG TABLET PO SCH (09:40)
[2018-12-08] MEDS: CEFOXITIN/SWI 1gm 1 GM/10 ML SYR IV SCH (09:46)
[2018-12-08] MEDS: ENOXAPARIN 30 MG/0.3 ML SQ SCH (09:53)
[2018-12-08] MEDS: Meropenem 1,000 MG in NA CHLORIDE 0.9% 100 ML IV SCH ×2 (09:53→22:30)
--- NOTE | 2018-12-08 20:05 | PN ---
Date of Progress Note: 12/08/2018 Subjective: The patient seen and examined. Chart reviewed and case discussed with RN. The patient states she is feeling better today. No significant abdominal pain, was able to tolerate her clear liquids. The patient did not have any further nausea or vomiting. Medications: List reviewed. Physical Examination: Vital Signs: Temperature 98.5, heart rate 87, blood pressure 162/59, respirations 16, O2 97% on 2 L via nasal cannula. General: Awake, alert and oriented x3. No acute distress. Elderly female, obese, BMI 30. CV: S1, S2. Regular rate and rhythm. Peripheral pulses present. Respiratory: Moving air well bilaterally. No wheezing. Gastrointestinal: Abdomen is tender to palpation. No rebound or guarding. Nondistended. Positive bowel sounds. Extremities: No clubbing, cyanosis, or edema. Neurologic: Nonfocal. Laboratory Data: Sodium 136, potassium 3.6, chloride 103, CO2 25, BUN 42, creatinine 1.22, glucose 110, calcium 7.4, phosphorus 2.2. WBC 22.7, H and H 11.6 and 34.7, neutrophils 85%, platelets 289. Blood cultures show no growth. Final repeat culture showing no growth to date. Assessment And Plan: An 88-year-old female with: 1. Acute pancreatitis with necrosis. Lipase normalized. Did develop some common bile duct stricture due to the necrosis and pancreatitis. Continue IV meropenem. White blood cell count trending up. Tolerating clear liquids. Surgical evaluation. 2. Elevated troponin level. No abnormality on echocardiogram. No hypokinesis. Normal ejection fraction. Follow up with Cardiology as outpatient. 3. Hypophosphatemia. We will replace and monitor. 4. Acute kidney injury, resolved. Secondary to hypovolemia and nausea, vomiting, dehydration. We will avoid NSAIDs. Continue to monitor creatinine level. 5. Severe protein-calorie malnutrition. Albumin is 2.1. 6. Obesity, BMI 30.6. 7. History of colon resection, status post colostomy. 8. Chronic obstructive pulmonary disease, chronic bronchitis. Continue O2 p.r.n. and albuterol as needed. 9. Hypothyroidism, stable. 10. Essential hypertension, now better controlled. The patient is on her home medications. 11. History of breast cancer, status post bilateral mastectomy. 12. History of laparoscopic cholecystectomy. GI and DVT prophylaxis addressed. Plan: Continue Lovenox renally dosed. Continue meropenem. We will discontinue cefoxitin. /ANTHONY Voice ID: [id number] Report ID: [id number] MTDD
--- NOTE | 2018-12-08 20:49 | P.PN ---
Subjective Date of Service: 12/08/18 Primary Care Provider: Dr. Quarles Chief Complaint: Abdominal pain Subjective: Improving (She feels better today and more energetic. Tolerated clear liquid diet well yesterday and has advanced to full liquids today. WBC has increased slightly from 21.8 to 22.7K, Cr from 1.1 to 1.2 and liver chemistries slightly up. 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 She denies dyspnea. She is on Budesonide inhaler.) Review of Systems 10-point ROS is otherwise unremarkable General: Weakness (Improved. ) Gastrointestinal: Abdominal Pain (Improved) Physical Examination - Vital Signs Temperature: 98.4 F Blood Pressure: 142/75 Pulse: 85 Respirations: 20 Pulse Ox (%): 98 - Physical Exam General: Alert, In no apparent distress, Oriented x3, Cooperative HEENT: Atraumatic, Normocephalic, PERRLA, EOMI Neck: Supple Respiratory: Diminished Cardiovascular: Normal pulses Gastrointestinal: No tenderness (obese), No rebound, No guarding Neurological: Normal speech - Studies Microbiology Data (last 24 hrs): 12/03/18 07:10 Blood - Blood Aerobic Blood Culture - Final No growth in 5 days. 12/03/18 07:10 Blood - Blood Anaerobic Blood Culture - Final No growth in 5 days. 12/03/18 06:40 Blood - Blood Aerobic Blood Culture - Final No growth in 5 days. 12/03/18 06:40 Blood - Blood Anaerobic Blood Culture - Final No growth in 5 days. Assessment And Plan - Current Problems (Diagnosis) (1) Acute pancreatitis Current Visit: Yes Status: Active Comment: WBC 21.8 to 22.7 with advancement in diet. (2) ZAN (acute kidney injury) Current Visit: Yes Status: Acute Comment: Cr now normal. (3) Elevated troponin Current Visit: Yes Status: Acute (4) Hypertension Current Visit: Yes Status: Chronic Qualifiers: Hypertension type: essential hypertension Qualified Code(s): I10 - Essential (primary) hypertension (5) History of colon resection Current Visit: No Status: Chronic - Plan REC: 1) hold on diet ,stay at [place] today; pull back to [facility] as indicated in AM 2) continue IV antibiotics & IVFs 3) check lipase in AM 4) start pancreas enzymes supplements
[2018-12-08] MEDS: AMYLASE/LIPASE/PROTEASE CAP PO SCH (23:06)
[2018-12-09] MEDS: LEVOTHYROXINE SOD 0.112 MG TAB PO SCH (05:34)
[2018-12-09] MEDS: Ringers Lactate 1,000 ML IV SCH ×2 (05:34→12:05)
[2018-12-09] MEDS: HYDRALAZINE HCL 20 MG/ML VIAL IV PRN (05:40)
[2018-12-09 06:03] LABS: Absolute Lymphocytes (CBC) 1.1 K/uL (0.7-4.9); Absolute Monocytes 2.4 K/uL (0.1-1.3); Absolute Neutrophil 15.4 K/uL (1.8-8.0); Basophils % 0.2 % (0-1.3); Eosinophils % 1.3 % (0-4.4); Hematocrit 36.8 % (36.0-45.0); Lymphocytes % 5.7 % (15.3-44.8); MPV 9.7 fL (7.6-11.3); Monocytes % 12.5 % (3.3-12.3); RBC Red Blood Cell Count 4.12 M/uL (3.86-4.86)
[2018-12-09 06:07] LABS: Phosphorus 2.2 mg/dL (2.5-4.9); Potassium 3.8 mmol/L (3.5-5.1)
[2018-12-09 06:09] LABS: Albumin 2.1 g/dL (3.4-5.0); Bilirubin Direct 0.1 mg/dL (0-0.2); Bilirubin Total 0.4 mg/dL (0.2-1.0); Magnesium 2.1 mg/dL (1.8-2.4); Protein, Total 5.7 g/dL (6.4-8.2)
[2018-12-09] MEDS: BUDESONIDE 0.25 MG/2 ML NEB NEB SCH ×2 (07:22→19:31)
[2018-12-09] MEDS: IPRATROPIUM BROM 0.5MG/2.5ML NEB PRN ×2 (07:22→13:33)
[2018-12-09] MEDS: ARFORMOTEROL TARTRATE 15 MCG/2 ML VIAL.NEB NEB SCH ×2 (07:22→19:31)
[2018-12-09] MEDS: AMYLASE/LIPASE/PROTEASE CAP PO SCH ×4 (08:03→21:39)
[2018-12-09] MEDS: hydroCHLOROthiazide 25 MG TAB PO SCH (08:04)
[2018-12-09] MEDS: DILTIAZEM HCL 180 MG SR CAP PO SCH (08:05)
[2018-12-09] MEDS: LOSARTAN POTASSIUM 50 MG TABLET PO SCH (08:05)
[2018-12-09] MEDS: ENOXAPARIN 30 MG/0.3 ML SQ SCH (08:06)
[2018-12-09] MEDS: Meropenem 1,000 MG in NA CHLORIDE 0.9% 100 ML IV SCH ×2 (08:06→21:39)
--- NOTE | 2018-12-09 08:28 | P.PN ---
Subjective Date of Service: 12/09/18 Primary Care Provider: Dr. Quarles Chief Complaint: Abdominal pain Subjective: Improving (Patient has no abdominal pain, passing gas. No other changes) Physical Examination - Vital Signs Temperature: 98.2 F Blood Pressure: 173/74 Pulse: 85 Respirations: 18 Pulse Ox (%): 95 - Physical Exam General: Alert, In no apparent distress, Cooperative Gastrointestinal: Soft and benign, Non-distended, No ascites, No tenderness, No masses, No rebound, No guarding - Studies Microbiology Data (last 24 hrs): 12/03/18 07:10 Blood - Blood Aerobic Blood Culture - Final No growth in 5 days. 12/03/18 07:10 Blood - Blood Anaerobic Blood Culture - Final No growth in 5 days. 12/03/18 06:40 Blood - Blood Aerobic Blood Culture - Final No growth in 5 days. 12/03/18 06:40 Blood - Blood Anaerobic Blood Culture - Final No growth in 5 days. Assessment And Plan - Current Problems (Diagnosis) (1) Acute pancreatitis Current Visit: Yes Status: Active Plan: - Continue IV hydration - Continue Medical management - serial exams - Dr. Coulter will be covering for me until wednesday
[2018-12-09] MEDS ORDERED: CALCIPOTRIENE 0.005% TOP SCH (09:00)
[2018-12-09] MEDS ORDERED: POTASSIUM CL SA 10 MEQ TAB PO ONE (09:00)
[2018-12-09] MEDS: CALCIPOTRIENE 0.005% TOP SCH (09:47)
[2018-12-09] MEDS: METOPROLOL TARTRATE 5 MG/5 ML INJ IV PRN (12:53)
--- NOTE | 2018-12-09 13:18 | CON ---
Date of Consultation: 12/08/2018 Brief History Of Present Illness: The patient is an 88-year-old female, who presented to [facility] emergency room with abdominal pain on 12/03/2018, they began suddenly on . They were in the e pigastric region without radiation. They were associated with nausea and vomiting. They were consta nt and were getting significantly worse. They had a somewhat mild crescendo decrescendo type pain, b ut never got better completely. She experienced similar episodes before in the past. She has a comp licated medical history and surgical history as well. She currently at the time of my examination, s tates that her abdominal pain is getting significantly better since her admission. She has been n.p. o. and continues to have some bowel function, but remains slightly distended and with abdominal pain predominantly in the epigastric region, but the pain has now significantly improved and very mild at its worst. Past Medical History: Significant for hypothyroidism, hypertension, breast cancer, perforated colon, melanoma. Past Surgical History: Includes cholecystectomy, mastectomy, melanoma excision, colostomy creation. Allergies: TO PROMETHAZINE AND MEPERIDINE. Home Medications: Include losartan and levothyroxine. Social History: She denies smoking history or alcohol use. Review of Systems: A 10-point review of systems other than HPI, she has some slight shortness of breath intermittently a t times, but currently she has no shortness of breath on nasal cannula. Physical Examination: Vital Signs: At the time of my examination, her vital signs were, blood pressure of 150/66, pulse is 84, respiratory rate 20, temperature 98.1. Pain level was 0 and she was saturating 98% on 2 L nasal cannula. General: She is awake, alert, and oriented. Psychiatric: She is appropriate and conversive. HEENT: She is normocephalic. Her sclerae are anicteric. Her mucous membranes are moist. Her oroph arynx is clear. Neck: Supple with no JVD. Chest: Normal expansion and excursion. Cardiovascular: Regular rate and rhythm. Pulmonary: Decreased breath sounds bilaterally. Abdomen: Generally obese and rotund, although it is minimally tender to deep palpation only in the e pigastrium. There is no rebound, guarding. No Rovsing's signs. No Ramos Scott or Nik's signs. The remainder of her abdominal exam shows a colostomy in the left lower quadrant, which is functional . She has well-healed surgical scars. Extremities: No clubbing, cyanosis, or edema. Skin: Warm and dry. Laboratory Examination: Reveals a white blood cell count of 22.7, hemoglobin is 11.6, however hemato crit of 34.7, platelet count is 289, neutrophils are 85%. Her sodium 136, potassium 3.6, chloride 10 3, carbon dioxide 25, BUN 42, creatinine 1.2, glucose is 110, phosphorus is 2.2. Her last set of everardo er function tests showed a total bilirubin 0.5, direct component 0.2, AST 65, ALT 53, alkaline phosph atase is 69. These LFTs are from 12/07. Her lipase was 94 at that time. She had imaging performed, which included an abdominal ultrasound, which was officially read as cholecystectomy. Common bile d uct measures 9 mm considered the upper limit of normal. She also had an abdomen and pelvis CT, which was officially read as mild to moderate, acute pancreatitis suspected. Correlation with amylase and lipase levels is advised. Cholecystectomy and limited noncontrast examination was performed as desc ribed. There is pneumobilia present in the liver with cholecystectomy clips seen. No aggressive everardo er lesions. Spleen, adrenal glands and kidneys are within normal limits. Peripancreatic fat strandi ng is seen greatest in the region of the pancreatic head and duodenal C-loop suggesting acute pancrea titis. No fluid collection to suggest pseudocyst. There is a moderate left lower quadrant small bow el parastomal hernia, scattered diverticulosis of the colon and aortic atherosclerosis. In addition, she had an abdomen CT on 12/05, which was officially read as mild pancreatic necrosis is suspected i nvolving the pancreatic neck. There is moderate inflammatory change seen in the surrounding pancreas compatible with acute pancreatitis. There is no hypoenhancement. The region of the pancreatic neck involving a 2.5 cm length of the pancreatic parenchyma compatible with mild pancreatic necrosis. No pseudocyst or portal vein thrombosis is noted. A mild ileus of the duodenum is identified. Additio thea, she had an MRCP on 12/05, which was officially read as cholecystectomy, mild narrowing of the distal common bile duct, probably indicating a mild stricture secondary to pancreatitis. Additionall y, she had a chest x-ray performed on 12/05, which is officially read as no acute abnormalities. The lungs appeared clear of acute infiltrate. Heart is mildly enlarged. Assessment And Plan: This is an 88-year-old female who presents with pancreatitis of uncertain etiol ogy. 1.IV fluid hydration. 2.The patient has no significant abdominal pain at this time, therefore continue serial abdominal ex ams. 3.Continue medical management per primary team. 4.I recommend to continue workup to attempt to discover the etiology of this pancreatitis. 5.The patient does not have evidence of infective pancreatitis at this time and as such I recommend nonoperative management of this pancreatitis; however, should there be concern for infected pancreati c necrosis, we would then likely roving changer to include a biopsy and discuss management when th e diagnosis is confirmed at that point. Thank you for this interesting consult. I will follow along with you. SOSA Voice ID: [id number] Report ID: [id number]
--- NOTE | 2018-12-09 17:15 | PN ---
Date of Progress Note: 12/09/2018 History: The patient is seen and examined. Chart reviewed and case discussed with RN and Dr. Tricia winslow. The patient states she feels better today. Abdominal pain is mild. She is able to tolerate full liquids, however, not much of an appetite or intake. Medications: List reviewed. Physical Examination: Vital Signs: Temperature 98.2, heart rate 85, blood pressure 173/74, respirations 18, O2 95% on 2 L via nasal cannula. General: Awake, alert, oriented x3. Elderly female, ill-appearing, obese. BMI 30. CV: S1, S2. Regular rate and rhythm. Peripheral pulses present. Respiratory: Moving air well bilaterally. No wheezing or stridor. Gastrointestinal: Abdomen is distended. Mild tenderness to palpation. No guarding or rigidity. Red wel sounds positive. Extremities: No clubbing, cyanosis, or edema. Neurologic: Nonfocal. Laboratory Data: Sodium 134, potassium 3.8, chloride 103, CO2 27, BUN 34, creatinine 1.01, glucose 1 14, calcium 7.6, phosphorus 2.2, magnesium 2.1. AST 55, ALT 54, albumin is 2.1. WBC 19.1, H and H 1 2.3 and 36.8, platelets 330, neutrophils 80%. Lipase is 94. Peripheral blood smear shows leukocytos is, absolute neutrophilia. Assessment And Plan: An 88-year-old female with: 1.Acute pancreatitis with necrosis, improving. White count finally trending down below 20 for the f irst time during the hospital stay. Pain has improved as well, tolerating full liquid diet. However , very limited appetite. The patient has been started on pancreatic enzymes by Dr. Whalen. Lipase h as normalized. We will continue IV meropenem. Appreciate Dr. Herrmann's input. He does not recommen d any surgery for the necrosis at this point. 2.Elevated troponin level, likely due to acute infection and demand mismatch. Echocardiogram does n ot show any significant abnormality. Ejection fraction is normal. No hypokinesis. I would recommen d outpatient followup with Cardiology. 3.Hypophosphatemia. Replace and monitor. 4.Acute kidney injury, resolved secondary to hypovolemia, nausea, vomiting, and dehydration. Contin ue to monitor creatinine level. 5.Severe protein-calorie malnutrition. Albumin is 2.1. The patient is unable to improve her diet. May need to be started on TPN. 6.Obesity, BMI 30.6. 7.Status post colon resection, currently with colostomy. 8.Chronic obstructive pulmonary disease, chronic bronchitis. Albuterol p.r.n. 9.Hypothyroidism. Stable. Tolerating Synthroid. 10.Essential hypertension, stable. Does tend to stay in the 160s to 170s. We will use p.r.n. medic ations. 11.History of breast cancer status post bilateral mastectomy. 12.History of melanoma. 13.Deep vein thrombosis prophylaxis with Lovenox. Plan: Continue IV antibiotics. Cultures are negative, final. Repeat cultures are no growth to date . Peripheral blood smear shows neutrophilic leukocytosis likely stemming from the infection. The jose sandhu is on a downward trend in terms of her white count and lipase. We will continue to monitor. W e will obtain PT, OT consultation. NAYELI Voice ID: [id number] Report ID: [id number]
--- NOTE | 2018-12-09 20:21 | P.PN ---
Subjective Date of Service: 12/09/18 Primary Care Provider: Dr. Quarles Chief Complaint: Abdominal pain Subjective: Improving (She is doing much better with more energy, no abdominal pain / dyspnea and happy and talkative. Wants to go home [place]. WBC down from 22.7 to 19.1K, with polys finally decreasing significantly from 85-90% range to 80% today. Lipase is normal at 94. She notes following orders and finally sat in chair today as well.) Review of Systems 10-point ROS is otherwise unremarkable General: Weakness (Improved) Physical Examination - Vital Signs Temperature: 98.6 F Blood Pressure: 166/64 Pulse: 79 Respirations: 20 Pulse Ox (%): 98 - Physical Exam General: Alert, In no apparent distress, Oriented x3, Cooperative HEENT: Atraumatic, Normocephalic, PERRLA, EOMI Neck: Supple Respiratory: Normal air movement Cardiovascular: Normal pulses Gastrointestinal: Soft and benign (obese), No tenderness, No rebound, No guarding Neurological: Normal speech Assessment And Plan - Current Problems (Diagnosis) (1) Acute pancreatitis Current Visit: Yes Status: Active Comment: WBC decreasing on IV antibiotics , down to 19.1 today! (2) ZAN (acute kidney injury) Current Visit: Yes Status: Acute Comment: Cr now normal. (3) Elevated troponin Current Visit: Yes Status: Acute (4) Hypertension Current Visit: Yes Status: Chronic Qualifiers: Hypertension type: essential hypertension Qualified Code(s): I10 - Essential (primary) hypertension (5) History of colon resection Current Visit: No Status: Chronic - Plan REC: 1) continue to monitor labs 2) continue IV antibiotics & IVFs 3) continue pancreatic enzyme supplements with diet
[2018-12-10] MEDS: Ringers Lactate 1,000 ML IV SCH ×3 (00:37→11:00)
[2018-12-10] MEDS: HYDRALAZINE HCL 20 MG/ML VIAL IV PRN (03:27)
[2018-12-10 04:45] LABS: Absolute Lymphocytes (CBC) 0.9 K/uL (0.7-4.9); Absolute Monocytes 1.6 K/uL (0.1-1.3); Absolute Neutrophil 12.5 K/uL (1.8-8.0); Basophils % 0.6 % (0-1.3); Eosinophils % 1.5 % (0-4.4); Hematocrit 33.9 % (36.0-45.0); Lymphocytes % 5.6 % (15.3-44.8); MPV 9.6 fL (7.6-11.3); Monocytes % 10.7 % (3.3-12.3); RBC Red Blood Cell Count 3.77 M/uL (3.86-4.86)
[2018-12-10 05:03] LABS: Potassium 4.1 mmol/L (3.5-5.1)
[2018-12-10] MEDS: LEVOTHYROXINE SOD 0.112 MG TAB PO SCH (06:29)
[2018-12-10 07:19] LABS: Phosphorus 1.8 mg/dL (2.5-4.9)
[2018-12-10] MEDS: ARFORMOTEROL TARTRATE 15 MCG/2 ML VIAL.NEB NEB SCH ×2 (08:26→18:27)
[2018-12-10] MEDS: BUDESONIDE 0.25 MG/2 ML NEB NEB SCH ×2 (08:26→18:27)
[2018-12-10] MEDS: LOSARTAN POTASSIUM 50 MG TABLET PO SCH (08:41)
[2018-12-10] MEDS: DILTIAZEM HCL 180 MG SR CAP PO SCH (08:42)
[2018-12-10] MEDS: IPRATROPIUM BROM 0.5MG/2.5ML NEB PRN ×3 (08:42→18:27)
[2018-12-10] MEDS: hydroCHLOROthiazide 25 MG TAB PO SCH (08:42)
[2018-12-10] MEDS: ENOXAPARIN 30 MG/0.3 ML SQ SCH (08:44)
[2018-12-10] MEDS: CALCIPOTRIENE 0.005% TOP SCH (08:44)
[2018-12-10] MEDS: AMYLASE/LIPASE/PROTEASE CAP PO SCH ×4 (08:48→20:36)
[2018-12-10] MEDS: Meropenem 1,000 MG in NA CHLORIDE 0.9% 100 ML IV SCH ×2 (08:55→20:36)
[2018-12-10] MEDS ORDERED: POTASSIUM PHOS IN 0.9 % NACL 15 MMOL/250 ML BAG IV ONE (09:00)
[2018-12-10] MEDS: POTASS/SODIUM PHOSPHATE 1 PKT POWD.PACK PO SCH ×3 (10:46→12:30)
--- NOTE | 2018-12-10 14:12 | RAD REPORT ---
EXAM DESCRIPTION: RAD - Chest Single View - 12/10/2018 1:37 pm CLINICAL HISTORY: Shortness of breath COMPARISON: December 05 TECHNIQUE: AP portable chest image was obtained 1332 hours . FINDINGS: Lung volumes are low. Bilateral pleural effusions have developed or progressed since December 05. Lung base atelectasis is present potentially masking infiltrate. Upper lobe vasculature within no rmal limits. Heart size is partially obscured by fluid but appears within normal limits. Trachea is m idline. No measurable pleural effusion and no pneumothorax. No acute bony abnormality seen. No acute aortic findings suspected. IMPRESSION: Bilateral pleural effusions and lung base atelectasis new from December 05.
[2018-12-10] MEDS ORDERED: FUROSEMIDE 40 MG/4 ML VIAL IV ONE (14:40)
[2018-12-10] MEDS ORDERED: Ringers Lactate 1,000 ML IV SCH (15:00)
--- NOTE | 2018-12-10 16:52 | P.PN ---
Subjective Date of Service: 12/10/18 Primary Care Provider: Dr. 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 She feels well except for an episode of SOB this morning but is on Lovenox. She is tolerating a full liquid diet well.) Review of Systems 10-point ROS is otherwise unremarkable General: Weakness (Improved ) Respiratory: Shortness of Breath (short episode this morning ) Physical Examination - Vital Signs Temperature: 97.9 F Blood Pressure: 164/73 Pulse: 86 Respirations: 18 Pulse Ox (%): 94 - Physical Exam General: Alert, In no apparent distress, Oriented x3, Cooperative HEENT: Atraumatic, Normocephalic, PERRLA, EOMI Neck: Supple Respiratory: Normal air movement Cardiovascular: Normal pulses Gastrointestinal: Soft and benign (obese), No tenderness, No rebound, No guarding Neurological: Normal speech Assessment And Plan - Current Problems (Diagnosis) (1) Acute pancreatitis Current Visit: Yes Status: Active Comment: WBC decreasing on IV antibiotics , down from 19.1 yesterday to 15.4 today. No abdominal pain. (2) ZAN (acute kidney injury) Current Visit: Yes Status: Acute Comment: Cr now normal. (3) Elevated troponin Current Visit: Yes Status: Acute (4) Hypertension Current Visit: Yes Status: Chronic Qualifiers: Hypertension type: essential hypertension Qualified Code(s): I10 - Essential (primary) hypertension (5) History of colon resection Current Visit: No Status: Chronic - Plan REC: 1) continue to monitor labs 2) continue IV antibiotics & IVFs 3) continue pancreatic enzyme supplements with diet
--- NOTE | 2018-12-10 18:37 | PN ---
Date of Progress Note: 12/10/2018 Subjective: The patient seen and examined. Chart reviewed and case discussed with RN and Dr. Whalen . The patient states her abdominal pain has improved. Did report some swelling in her arms bilatera lly. Medications: List reviewed. Physical Examination: Vital Signs: Temperature 97.7, heart rate 82, blood pressure 178/76, respirations 18, O2 98% on 2 L via nasal cannula. General: Awake, alert, oriented x3, not in any acute distress. Ill-appearing female, obese, BMI 30, elderly female. CV: S1, S2. Regular rate and rhythm. Peripheral pulses present. Respiratory: Diminished breath sounds at the bases. Some crackles heard. Gastrointestinal: Abdomen is soft, nontender, nondistended. Positive bowel sounds. No guarding or rigidity. Colostomy bag in place. Extremities: No clubbing, cyanosis, or edema. Skin: The patient does have some pedal edema. Neurologic: Nonfocal. Laboratory Data: Sodium 133, potassium 4.1, chloride 101, CO2 27, BUN 26, creatinine 0.8. Glucose 1 21, calcium 7.6, phosphorus 1.8. WBC 15.4, H and H 11.2 and 33.9, platelets 284, neutrophils 81%. Chest x-ray shows bilateral pleural effusions and lung base atelectasis new from December 05. Assessment And Plan: An 88-year-old female with: 1.Acute pancreatitis with necrosis, improving. White count 15,000. Pain has improved as well. No signs of sepsis. The patient is afebrile. We will reduce rate of IV fluids due to pleural effusions bilaterally found on chest x-ray. 2.Shortness of breath. The patient on supplemental oxygen, likely secondary to pleural effusions, r educe dose of IV fluids and one time dose of Lasix. We will continue to monitor. 3.Acute kidney injury, resolved. We will continue to monitor creatinine level secondary to hypokale tamara, dehydration, vomiting. 4.Hypophosphatemia, replace. Continue to monitor. 5.Elevated troponin level due to demand mismatch. No abnormalities on echo. EF is normal. 6.Severe protein-calorie malnutrition. Albumin 2.1. The patient is tolerating full liquids, likely advance to low-fat diet in a.m. 7.Obesity, BMI 30.6. 8.Status post colon resection, status post colostomy, stable. 9.Chronic obstructive pulmonary disease, chronic bronchitis. The patient currently on supplemental oxygen with nasal cannula. We will continue albuterol p.r.n. 10.Hypothyroidism, continue Synthroid, stable. 11.Essential hypertension, stable. 12.History of breast cancer, status post bilateral mastectomy. 13.History of melanoma, stable. 14.Deep venous thrombosis prophylaxis with Lovenox. /ANTHONY Voice ID: [id number] Report ID: [id number]
--- NOTE | 2018-12-10 21:00 | RAD REPORT ---
EXAM DESCRIPTION: - UPPER EXTREMITY VENOUS BILAT - 12/10/2018 8:15 pm CLINICAL HISTORY: Bilateral arm pain and swelling COMPARISON: None. TECHNIQUE: Real-time sonographic evaluation of the left upper extremity deep venous systems was perf ormed. FINDINGS: Normal compressibility, flow augmentation, phasic flow and spontaneous flow are identified in the bilateral upper extremity deep venous system. No intraluminal filling defects seen. Internal jugular and subclavian veins are normal as well. IMPRESSION: No DVT in the bilateral upper extremities.
--- NOTE | 2018-12-10 23:28 | CON ---
Date of Consultation: 12/10/2018 History Of Present Illness: This is the case of an 88-year-old patient, who came to the hospital [facility] of an epigastric pain, found to have pancreatitis, initially seen by Dr. Herrmann, he is out of town at this moment. They asked me to evaluate this patient. This patient has been seen by me in the past since the patient has an emergent colostomy. She is doing well from that standpoint. She does not remember what happened in the epigastric area. She just started to have some nausea and vom iting at one point. She came with a high WBC count and high lipase today. They are better and she f eels better too. Past Medical History: Hypertension, hypothyroidism, breast cancer, perforated colon, melanoma. Past Surgical History: Include laparotomy with colostomy, mastectomy, cholecystectomy. Social History: She does not smoke. She does not drink alcohol. Family History: Noncontributory. Review of Systems: Ten points, otherwise unremarkable. Physical Examination: General: The patient is awake and alert, in no distress. HEENT: Pupils are equal and reactive. Anicteric. Neck: Supple. Chest: Clear. Abdomen: Soft and depressible. Epigastric mild discomfort, but no guarding or rebound. No peritone al signs. Ostomy viable. Extremities: Good capillary refill. Laboratory Data: Blood work shows a WBC count of 15.4, coming down from 37.7. INR is 1.9. Lipase i s 94, but initially comes with 22,648. Creatinine is 1.67. Glucose 155. Calcium is 8.9. Assessment: An 88-year-old patient with pancreatitis. Right now, she is starting to tolerate diet. Lipase is better. There is a common bile duct finding, not stone, but at least some stricture. Dr. Whalen is present here in the hospital today. He is evaluating that area. From the surgical standp oint, no surgical intervention planned at this moment. We will see the patient with you the rest of the weekend. HM/MODL Voice ID: [id number] Report ID: [id number]
[2018-12-11] MEDS: HYDRALAZINE HCL 20 MG/ML VIAL IV PRN ×2 (00:29→08:35)
[2018-12-11] MEDS: IPRATROPIUM BROM 0.5MG/2.5ML NEB PRN ×2 (03:40→14:28)
[2018-12-11] MEDS: LEVOTHYROXINE SOD 0.112 MG TAB PO SCH (05:55)
[2018-12-11 05:58] LABS: Absolute Lymphocytes (CBC) 0.9 K/uL (0.7-4.9); Absolute Monocytes 1.4 K/uL (0.1-1.3); Absolute Neutrophil 10.5 K/uL (1.8-8.0); Basophils % 0.3 % (0-1.3); Eosinophils % 2.1 % (0-4.4); Hematocrit 33.1 % (36.0-45.0); Lymphocytes % 6.6 % (15.3-44.8); MPV 9.4 fL (7.6-11.3); Monocytes % 10.9 % (3.3-12.3); RBC Red Blood Cell Count 3.76 M/uL (3.86-4.86)
[2018-12-11 06:12] LABS: Albumin 1.8 g/dL (3.4-5.0); Bilirubin Direct 0.1 mg/dL (0-0.2); Bilirubin Total 0.3 mg/dL (0.2-1.0); Magnesium 1.7 mg/dL (1.8-2.4); Phosphorus 2.3 mg/dL (2.5-4.9); Potassium 3.7 mmol/L (3.5-5.1); Protein, Total 5.1 g/dL (6.4-8.2)
[2018-12-11] MEDS: POTASS/SODIUM PHOSPHATE 1 PKT POWD.PACK PO SCH ×5 (08:00→09:50)
[2018-12-11] MEDS: ENOXAPARIN 30 MG/0.3 ML SQ SCH (08:14)
[2018-12-11] MEDS: Meropenem 1,000 MG in NA CHLORIDE 0.9% 100 ML IV SCH ×2 (08:14→21:52)
[2018-12-11] MEDS: LOSARTAN POTASSIUM 50 MG TABLET PO SCH (08:15)
[2018-12-11] MEDS: hydroCHLOROthiazide 25 MG TAB PO SCH (08:15)
[2018-12-11] MEDS: AMYLASE/LIPASE/PROTEASE CAP PO SCH ×4 (08:16→21:53)
[2018-12-11] MEDS: CALCIPOTRIENE 0.005% TOP SCH (08:17)
[2018-12-11] MEDS: DILTIAZEM HCL 180 MG SR CAP PO SCH (08:17)
[2018-12-11] MEDS: BUDESONIDE 0.25 MG/2 ML NEB NEB SCH ×2 (08:48→19:38)
[2018-12-11] MEDS: ARFORMOTEROL TARTRATE 15 MCG/2 ML VIAL.NEB NEB SCH ×2 (08:48→19:38)
[2018-12-11] MEDS ORDERED: MAGNESIUM SULFATE 1 gm IVPB 1 GM/100 ML BAG IV ONE (09:00)
[2018-12-11] MEDS ORDERED: FUROSEMIDE 40 MG/4 ML VIAL IV SCH (09:14)
[2018-12-11 09:54] LABS: Blood Morphology Comment NOT SEEN (NOT SEEN); Platelet Estimate ADEQ; Urine White Blood Cell Casts OK
--- NOTE | 2018-12-11 14:17 | P.PN ---
Subjective Date of Service: 12/11/18 Primary Care Provider: Dr. 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 No abdominal pain / N / V. Tolerating FLs well with pancreatic enzymes. Normal lipase. WBC continues to decline from 15.4 yesterday to 13.1K today. Pancreatic necrosis of the pancreatic neck noted on 2nd CT.) Review of Systems 10-point ROS is otherwise unremarkable General: Weakness (Improved) Physical Examination - Vital Signs Temperature: 97.7 F Blood Pressure: 145/66 Pulse: 71 Respirations: 16 Pulse Ox (%): 95 - Physical Exam General: Alert, In no apparent distress, Oriented x3, Cooperative HEENT: Atraumatic, Normocephalic, PERRLA, EOMI Neck: Supple Respiratory: Normal air movement Cardiovascular: Normal pulses Gastrointestinal: Soft and benign (obese), No tenderness, No rebound, No guarding Neurological: Normal speech Assessment And Plan - Current Problems (Diagnosis) (1) Acute pancreatitis Current Visit: Yes Status: Active Comment: WBC decreasing on IV antibiotics , down from 15.4 yesterday to 13.1 today. No abdominal pain. Etiology of AP not clear. She is s/p lap cody years ago, no EtOH, TGs normal. MRCP did show narrowing of the distal CBD but thought due to acute pancreatitis. Occult neoplasia or other? (2) ZAN (acute kidney injury) Current Visit: Yes Status: Acute Comment: Cr now normal. (3) Elevated troponin Current Visit: Yes Status: Acute (4) Hypertension Current Visit: Yes Status: Chronic Qualifiers: Hypertension type: essential hypertension Qualified Code(s): I10 - Essential (primary) hypertension (5) History of colon resection Current Visit: No Status: Chronic - Plan REC: 1) continue to monitor labs 2) continue IV antibiotics & IVFs 3) continue pancreatic enzyme supplements with diet 4) check CA19-9 & CA125 5) discharge in 1-2 days with normal WBC 6) GI clinic f/u in 1-2 weeks
--- NOTE | 2018-12-11 14:55 | PN ---
Date of Progress Note: 12/11/2018 Subjective: The patient is seen and examined. Chart reviewed and case discussed with RN and Dr. Gustabo elkins. The patient is doing significantly better. No significant abdominal pain. No nausea or vomiti ng. The patient is tolerating full liquids. The patient does report some shortness of breath and se junito generalized weakness. Medications: List reviewed. Physical Examination: Vital Signs: Temperature 98, heart rate 82, blood pressure 185/78, respirations 20, O2 98% on 3 L vi a nasal cannula. General: Awake, alert, oriented x3. Elderly female, ill-appearing, obese, BMI 30.6. CV: S1, S2. Regular rate and rhythm. Peripheral pulses present. Respiratory: Diminished breath sounds. Crackles present. No wheezing or stridor. Gastrointestinal: Abdomen is soft, nontender, nondistended. Positive bowel sounds. Colostomy bag i n place. Extremities: No clubbing, cyanosis, or edema. Neurologic: Nonfocal. Laboratory Data: Sodium 133, potassium 3.7, chloride 99, CO2 29, BUN 21, creatinine 0.87, glucose 11 0, calcium 7.8, phosphorus 2.3, magnesium 1.7, albumin 1.8. WBC 13.1, H and H 11.4/33.1, platelets 3 29, neutrophils 80%. Blood cultures, no growth, final. Assessment: An 88-year-old female with: 1.Acute pancreatitis with necrosis, improving. White count down to 13,000. Pain has essentially re solved. The patient was taken off IV fluids due to pleural effusions on x-ray. The patient's lipase is normal. The patient is tolerating full liquids. We will advance to GI soft. 2.Bilateral pleural effusions secondary to volume overload. Continue with Lasix. Monitor oxygen le vels. The patient currently on 3 L via nasal cannula. 3.Acute kidney injury, resolved. Continue to monitor creatinine. 4.Hypophosphatemia. Replaced. 5.Hypomagnesemia. We will replace and monitor. 6.Elevated troponin level due to demand mismatch. EF normal. 7.Severe protein-calorie malnutrition. Albumin is 1.8. We will start the patient on GI soft diet t yari. If she is unable to tolerate that diet, she will need to be started on TPN. 8.Obesity, BMI 30.6. 9.Status post colon resection with colostomy, stable. 10.Chronic obstructive pulmonary disease, chronic bronchitis, currently on supplemental oxygen. We will continue nebulizer treatments as needed. 11.Hypothyroidism. Synthroid. Stable. 12.Essential hypertension, stable on home medications. 13.History of breast cancer, status post bilateral mastectomy. 14.History of melanoma, stable. 15.Deep vein thrombosis prophylaxis with Lovenox. Plan: We will consult for physical therapy and rehab placement. NAYELI Voice ID: [id number] Report ID: [id number]
--- NOTE | 2018-12-11 22:05 | PN ---
Date of Progress Note: 12/11/2018 Diagnosis: Pancreatitis. Subjective: The patient is doing better. No shortness of breath. No chest pain. No abdominal pain . No nausea, no vomiting. Review of Systems: Ten points, otherwise unremarkable. Objective: General: The patient is awake and alert. HEENT: Pupils are equal and reactive, anicteric. Abdomen: Soft and depressible. No guarding or rebound. Extremities: Good capillary refill. Laboratory Data: WBC count is 13.1 with hemoglobin of 11.4. Calcium was 7.8, creatinine is 0.87. Assessment And Plan: An 88-year-old patient with pancreatitis, improving; lipase, improved too. Fro m the surgical standpoint, no plans for surgical intervention at this moment. The primary doctors ar e dealing with the other medical conditions including effusion. HM/MODL Voice ID: [id number] Report ID: [id number]
[2018-12-12] MEDS: HYDRALAZINE HCL 20 MG/ML VIAL IV PRN ×2 (00:58→22:37)
[2018-12-12] MEDS: LEVOTHYROXINE SOD 0.112 MG TAB PO SCH (05:39)
[2018-12-12] MEDS: IPRATROPIUM BROM 0.5MG/2.5ML NEB PRN (06:00)
[2018-12-12 06:11] LABS: Absolute Lymphocytes (CBC) 0.9 K/uL (0.7-4.9); Absolute Monocytes 1.2 K/uL (0.1-1.3); Absolute Neutrophil 9.8 K/uL (1.8-8.0); Basophils % 0.5 % (0-1.3); Eosinophils % 2.3 % (0-4.4); MPV 9.5 fL (7.6-11.3); Monocytes % 10.2 % (3.3-12.3); RBC Red Blood Cell Count 3.92 M/uL (3.86-4.86)
[2018-12-12 06:25] LABS: Magnesium 1.7 mg/dL (1.8-2.4); Phosphorus 2.4 mg/dL (2.5-4.9); Potassium 3.7 mmol/L (3.5-5.1)
[2018-12-12] MEDS: ARFORMOTEROL TARTRATE 15 MCG/2 ML VIAL.NEB NEB SCH ×2 (07:54→20:00)
[2018-12-12] MEDS: BUDESONIDE 0.25 MG/2 ML NEB NEB SCH ×2 (07:54→20:00)
[2018-12-12] MEDS: AMYLASE/LIPASE/PROTEASE CAP PO SCH ×4 (08:55→22:35)
[2018-12-12] MEDS: CALCIPOTRIENE 0.005% TOP SCH (08:56)
[2018-12-12] MEDS: hydroCHLOROthiazide 25 MG TAB PO SCH (08:57)
[2018-12-12] MEDS: LOSARTAN POTASSIUM 50 MG TABLET PO SCH (08:57)
[2018-12-12] MEDS: DILTIAZEM HCL 180 MG SR CAP PO SCH (08:58)
[2018-12-12] MEDS: POTASS/SODIUM PHOSPHATE 1 PKT POWD.PACK PO SCH ×3 (08:58→13:12)
[2018-12-12] MEDS: Meropenem 1,000 MG in NA CHLORIDE 0.9% 100 ML IV SCH ×2 (08:59→22:35)
[2018-12-12] MEDS: ENOXAPARIN 30 MG/0.3 ML SQ SCH (08:59)
[2018-12-12] MEDS ORDERED: POTASSIUM CL SA 10 MEQ TAB PO ONE (09:00)
[2018-12-12] MEDS ORDERED: MAGNESIUM SULFATE 1 gm IVPB 1 GM/100 ML BAG IV ONE (09:00)
--- NOTE | 2018-12-12 18:03 | PN ---
Date of Progress Note: 12/12/2018 Subjective: Patient seen and examined. Chart reviewed and case discussed with RN and Dr. Herrmann. The patient overall is doing significantly better, having some difficulty breathing, but improved ove rall. Medications: List reviewed. Physical Examination: Vital Signs: Temperature 98, heart rate 80, blood pressure 173/69, respirations 18, O2 95% on 2 L vi a nasal cannula. General: Awake, alert, and oriented x3, elderly female, ill-appearing, obese, BMI 30. CV: S1, S2. Regular rate and rhythm. Peripheral pulses present. Respiratory: Diminished air movement bilaterally, but improved significantly from previous. No crac kles. Gastrointestinal: Abdomen is soft, nontender, nondistended. Bowel sounds positive. Colostomy bag i n place with liquid stool. Extremities: No clubbing, cyanosis, or edema. Neurologic: Nonfocal. Laboratory Data: Sodium 132, potassium 3.7, chloride 97, CO2 29, BUN 16, creatinine 0.86, glucose 11 1, calcium 7.6, phosphorus 2.4, magnesium 1.7. Albumin is pending. WBC 12.2, H and H 11.6 and 34, p latelets 386, neutrophils 80%. Assessment And Plan: An 88-year-old female with; 1.Acute pancreatitis with necrosis, improving. White count down to 12. Lipase normalized. The pat ient now tolerating GI soft diet. Appreciate GI and surgery input. 2.Bilateral pleural effusions secondary to volume overload. Continue Lasix. The patient currently on 2 L via nasal cannula, down from 3 L likely due to volume overload. We will avoid IV fluids for n ow. 3.Acute kidney injury resolved. 4.Hypophosphatemia we will replace and monitor. 5.Hypomagnesemia. The patient is on replacement protocol. We will continue to monitor. 6.Elevated troponin level likely due to demand mismatch. Echo is normal. We will recommend outpati ent Cardiology followup. 7.Severe protein-calorie malnutrition, albumin is 1.8. The patient started on diet today. We will need supplements. 8.Obesity, BMI 30.6. 9.Item status post colon resection with colostomy. 10.Chronic obstructive pulmonary disease, chronic back, bronchitis. Patient on supplemental O2. We will continue breathing treatments. 11.Hypothyroidism, continue Synthroid, stable. 12.Essential hypertension stable on home medications. 13.History of breast cancer status post bilateral mastectomy. 14.Lichen planus. 15.History of melanoma, stable. 16.DVT prophylaxis with Lovenox. Plan: Refer to inpatient rehab. The patient to be discharge once accepted clinically stable. No ames rgical intervention at this time. The patient will need to be switched over to oral antibiotics on d ischarge. /ANTHONY Voice ID: [id number] Report ID: [id number]
[2018-12-13] MEDS: LEVOTHYROXINE SOD 0.112 MG TAB PO SCH (06:09)
[2018-12-13 06:36] LABS: C-Reactive Protein 61.7 mg/L (<3.00); Magnesium 1.9 mg/dL (1.8-2.4); Phosphorus 2.7 mg/dL (2.5-4.9); Potassium 4.1 mmol/L (3.5-5.1); Prealbumin 7.5 mg/dL (20-40)
[2018-12-13] MEDS: AMYLASE/LIPASE/PROTEASE CAP PO SCH ×4 (08:39→21:00)
[2018-12-13] MEDS: Meropenem 1,000 MG in NA CHLORIDE 0.9% 100 ML IV SCH ×2 (08:39→21:17)
[2018-12-13] MEDS: hydroCHLOROthiazide 25 MG TAB PO SCH (08:40)
[2018-12-13] MEDS: DILTIAZEM HCL 180 MG SR CAP PO SCH (08:40)
[2018-12-13] MEDS: LOSARTAN POTASSIUM 50 MG TABLET PO SCH (08:40)
[2018-12-13] MEDS: ENOXAPARIN 30 MG/0.3 ML SQ SCH (08:43)
[2018-12-13] MEDS: CALCIPOTRIENE 0.005% TOP SCH (08:43)
[2018-12-13] MEDS: ARFORMOTEROL TARTRATE 15 MCG/2 ML VIAL.NEB NEB SCH ×2 (08:53→20:00)
[2018-12-13] MEDS: BUDESONIDE 0.25 MG/2 ML NEB NEB SCH ×2 (08:53→20:00)
--- NOTE | 2018-12-13 10:55 | EKG ---
Test Date: 2018-12-03 Test Time: 07:19:44 Lawn Maintenance Worker: MANUEL MEASUREMENT RESULTS: Intervals: Rate: 59 MN: 162 QRSD: 124 QT: 494 QTc: 489 [place]: P: 74 MN: 162 QRS: -33 T: 37 INTERPRETIVE STATEMENTS: Sinus bradycardia with occasional premature ventricular complexes Possible Left atrial enlargement Left axis deviation Left ventricular hypertrophy with QRS widening Nonspecific T wave abnormality Abnormal ECG Compared to ECG 12/01/2014 06:10:06 Left-axis deviation now present Electronically Signed On 12-04-18 06:22:46 CDT by Yamil Norris
--- NOTE | 2018-12-13 11:02 | EKG ---
Test Date: 2018-12-04 Test Time: 10:56:47 Drafter Detail: MEASUREMENT RESULTS: Intervals: Rate: 80 [place]: 154 QRSD: 122 QT: 392 QTc: 452 [place]: P: 71 KS: 154 QRS: -12 T: 106 INTERPRETIVE STATEMENTS: Normal sinus rhythm with sinus arrhythmia Left ventricular hypertrophy with QRS widening and repolarization abnormality Abnormal ECG Compared to ECG 12/03/2018 07:19:44 Sinus bradycardia no longer present Ventricular premature complex(es) no longer present Left-axis deviation no longer present T-wave abnormality no longer present Electronically Signed On 12-05-18 12:03:29 CDT by Yamil Norris
--- NOTE | 2018-12-13 11:02 | EKG ---
Test Date: 2018-12-04 Test Time: 10:57:35 Records Manager: MEASUREMENT RESULTS: Intervals: Rate: 77 MI: 154 QRSD: 126 QT: 410 QTc: 463 [place]: P: 72 MI: 154 QRS: -12 T: 115 INTERPRETIVE STATEMENTS: Sinus rhythm with marked sinus arrhythmia Left ventricular hypertrophy with QRS widening and repolarization abnormality Abnormal ECG Compared to ECG 12/04/2018 10:56:47 No significant changes Electronically Signed On 12-05-18 12:03:14 CDT by Yamil Norris
--- NOTE | 2018-12-13 11:03 | P.PN ---
Subjective Date of Service: 12/13/18 Primary Care Provider: Dr. 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
--- NOTE | 2018-12-13 11:35 | P.PN ---
Subjective Date of Service: 12/13/18 Primary Care Provider: Dr. 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 Normal lipase. No abdominal pain, N/V. Declining WBC but none done today. Awaiting facility placement.) Review of Systems 10-point ROS is otherwise unremarkable General: Weakness (Improved. ) Physical Examination - Vital Signs Temperature: 97.9 F Blood Pressure: 177/77 Pulse: 81 Respirations: 18 Pulse Ox (%): 97 - Physical Exam General: Alert, In no apparent distress, Oriented x3, Cooperative HEENT: Atraumatic, Normocephalic, PERRLA, EOMI Neck: Supple Respiratory: Normal air movement Cardiovascular: Normal pulses Gastrointestinal: Soft and benign, No tenderness, No rebound, No guarding Neurological: Normal speech Assessment And Plan - Current Problems (Diagnosis) (1) Acute pancreatitis Current Visit: Yes Status: Active Comment: WBC decreasing on IV antibiotics , down to 12.2 yesterday. No abdominal pain. Etiology of AP not clear. She is s/p lap cody years ago, no EtOH, TGs normal. MRCP did show narrowing of the distal CBD but thought due to acute pancreatitis. Occult neoplasia or other? (2) ZAN (acute kidney injury) Current Visit: Yes Status: Acute Comment: Cr now normal. (3) Elevated troponin Current Visit: Yes Status: Acute (4) Hypertension Current Visit: Yes Status: Chronic Qualifiers: Hypertension type: essential hypertension Qualified Code(s): I10 - Essential (primary) hypertension (5) History of colon resection Current Visit: No Status: Chronic - Plan REC: 1) continue to monitor labs; check WBC now 2) continue IV antibiotics & IVFs 3) continue pancreatic enzyme supplements with diet 4) await CA19-9 & CA125 5) discharge soon 6) GI clinic f/u in 1-2 weeks
[2018-12-13] MEDS: HYDRALAZINE HCL 20 MG/ML VIAL IV PRN ×2 (11:43→17:00)
[2018-12-13 12:35] LABS: Absolute Lymphocytes (CBC) 0.9 K/uL (0.7-4.9); Absolute Monocytes 1.4 K/uL (0.1-1.3); Absolute Neutrophil 12.5 K/uL (1.8-8.0); Basophils % 0.1 % (0-1.3); Eosinophils % 1.5 % (0-4.4); Hematocrit 35.1 % (36.0-45.0); Lymphocytes % 5.9 % (15.3-44.8); MPV 9.3 fL (7.6-11.3); Monocytes % 9.3 % (3.3-12.3); RBC Red Blood Cell Count 3.99 M/uL (3.86-4.86)
[2018-12-13 12:57] LABS: Blood Morphology Comment NOT SEEN (NOT SEEN); Platelet Estimate ADEQ; Urine White Blood Cell Casts OK
--- NOTE | 2018-12-13 23:11 | P.PN ---
Subjective Date of Service: 12/13/18 Primary Care Provider: Dr. 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 Chart reviewed and case discussed with nursing staff. Overall improved. Breathing improved. Pain much improved. Review of Systems 10-point ROS is otherwise unremarkable Physical Examination - Vital Signs Temperature: 98.2 F Blood Pressure: 159/79 Pulse: 89 Respirations: 20 Pulse Ox (%): 97 Assessment And Plan - Current Problems (Diagnosis) (1) Acute pancreatitis Current Visit: Yes Status: Active (2) ZAN (acute kidney injury) Current Visit: Yes Status: Acute (3) Elevated troponin Current Visit: Yes Status: Acute (4) Hypertension Current Visit: Yes Status: Chronic Qualifiers: Hypertension type: essential hypertension Qualified Code(s): I10 - Essential (primary) hypertension (5) Hx of breast cancer Current Visit: Yes Status: Chronic (6) History of colon resection Current Visit: No Status: Chronic (7) Colostomy in place Current Visit: No Status: Chronic (8) s/p laparoscopic cholecystectomy Current Visit: No Status: Acute (9) COPD (chronic obstructive pulmonary disease) Onset Date: 12/03/14 Current Visit: No Status: Chronic Qualifiers: Chronic bronchitis type: unspecified (10) Hypothyroid Current Visit: Yes Status: Chronic Qualifiers: Hypothyroidism type: unspecified Qualified Code(s): E03.9 - Hypothyroidism , unspecified (11) Protein-calorie malnutrition, severe Current Visit: Yes Status: Acute - Plan Acute pancreatitis with necrosis Continue GI soft diet Monitor labs. Lipase in normal range now. GI consulted, recommendations appreciated. Bilateral pleural effusions, secondary to volume overload Continue lasix Continue oxygen as needed Hypophosphatemia Hypomagnesemia Replace per protocol Elevated troponin likely due to demand mismatch Echocardiogram done, mild pulmonary hypertension, otherwise normal. Cardiology consult as an outpatient. Acute kidney injury, Resolved. Likely 2/2 hypovolemia from vomiting and decreased PO Continue to monitor. Avoid nephrotoxic agents Colon resection w/ colostomy Stable Continue colostomy care as normal COPD Stable; Continue oxygen as needed, breathing treatments as needed Hypothyroid Stable, continue home medications Hypertension Stable, will restart home medications once tolerating PO Will use IV agents if needed till then Breast ca hx w/ B/L Mastectomy Stable Obesity, BMI 30.6 Severe protein calorie malnutrition Continue supplementation DVT Prophylaxis: Lovenox GI Prophylaxis: Protonix Diet: GI soft Dispo: Patient was declined for inpatient rehab as patient not working with Physical therapy. She is pending placement at a [facility] facility.
[2018-12-14] MEDS: LEVOTHYROXINE SOD 0.112 MG TAB PO SCH (05:28)
[2018-12-14] MEDS: HYDRALAZINE HCL 20 MG/ML VIAL IV PRN ×2 (05:28→16:14)
[2018-12-14] MEDS: AMYLASE/LIPASE/PROTEASE CAP PO SCH ×4 (07:30→21:00)
[2018-12-14] MEDS ORDERED: HYDROMORPHONE HCL 0.5 MG/0.5 ML INJ IV PRN (08:23)
[2018-12-14] MEDS: ARFORMOTEROL TARTRATE 15 MCG/2 ML VIAL.NEB NEB SCH ×2 (08:50→20:00)
[2018-12-14] MEDS: BUDESONIDE 0.25 MG/2 ML NEB NEB SCH ×2 (08:50→20:00)
[2018-12-14] MEDS: DILTIAZEM HCL 180 MG SR CAP PO SCH (08:58)
--- NOTE | 2018-12-14 08:58 | P.PN ---
Subjective Date of Service: 12/14/18 Primary Care Provider: Dr. 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
[2018-12-14] MEDS: LOSARTAN POTASSIUM 50 MG TABLET PO SCH (08:59)
[2018-12-14] MEDS: CALCIPOTRIENE 0.005% TOP SCH (08:59)
[2018-12-14] MEDS: hydroCHLOROthiazide 25 MG TAB PO SCH (08:59)
[2018-12-14] MEDS: ENOXAPARIN 30 MG/0.3 ML SQ SCH (09:00)
[2018-12-14] MEDS: Meropenem 1,000 MG in NA CHLORIDE 0.9% 100 ML IV SCH ×2 (09:00→23:25)
[2018-12-14] MEDS: ENSURE ENLIVE 237 ML CAN PO SCH ×3 (09:00→21:00)
--- NOTE | 2018-12-14 15:18 | RAD REPORT ---
EXAM DESCRIPTION: Jeri Single View12/14/2018 2:58 pm CLINICAL HISTORY: Chest pain COMPARISON: December 10, 2018 FINDINGS: Bibasilar opacities appear improved. Small to moderate pleural effusions are suspected. The upper lobes are clear. Heart is borderline enlarged
[2018-12-14 16:15] LABS: Urine Appearance CLEAR; Urine Bilirubin NEGATIVE (NEG); Urine Blood NEGATIVE (NEG); Urine Color YELLOW; Urine Glucose NEGATIVE (NEG); Urine Protein TRACE (NEG); Urine Specific Gravity 1.015 (1.005-1.030); Urine Urobilinogen 0.2 mg/dL (0.2-1.0)
[2018-12-14 16:25] LABS: Urine Bacteria NONE SEEN /HPF (<20); Urine RBC NONE SEEN /HPF (NONE SEEN)
[2018-12-14 16:26] LABS: Urine Culture Reflex Order NOT NEEDED
[2018-12-14] MEDS ORDERED: MORPHINE 2 MG/ML SYR IV PRN (18:52)
[2018-12-14 20:16] LABS: Gamma Glutamyl Transpeptidase 15 U/L (3-65)
--- NOTE | 2018-12-14 22:36 | P.PN ---
Subjective Date of Service: 12/14/18 Primary Care Provider: Dr. 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 Chart reviewed and case discussed with nursing staff. Review of Systems 10-point ROS is otherwise unremarkable Physical Examination - Vital Signs Temperature: 98 F Blood Pressure: 176/77 Pulse: 85 Respirations: 16 Pulse Ox (%): 95 - Physical Exam General: Alert, Oriented x3, Mild distress Respiratory: Diminished Cardiovascular: Regular rate/rhythm, Normal S1 S2 Assessment And Plan - Current Problems (Diagnosis) (1) Acute pancreatitis Current Visit: Yes Status: Active (2) ZAN (acute kidney injury) Current Visit: Yes Status: Acute (3) Elevated troponin Current Visit: Yes Status: Acute (4) Hypertension Current Visit: Yes Status: Chronic Qualifiers: Hypertension type: essential hypertension Qualified Code(s): I10 - Essential (primary) hypertension (5) Hx of breast cancer Current Visit: Yes Status: Chronic (6) History of colon resection Current Visit: No Status: Chronic (7) Colostomy in place Current Visit: No Status: Chronic (8) s/p laparoscopic cholecystectomy Current Visit: No Status: Acute (9) COPD (chronic obstructive pulmonary disease) Onset Date: 12/03/14 Current Visit: No Status: Chronic Qualifiers: Chronic bronchitis type: unspecified (10) Hypothyroid Current Visit: Yes Status: Chronic Qualifiers: Hypothyroidism type: unspecified Qualified Code(s): E03.9 - Hypothyroidism , unspecified (11) Protein-calorie malnutrition, severe Current Visit: Yes Status: Acute - Plan Acute pancreatitis with necrosis Continue GI soft diet Monitor labs. Lipase in normal range now. GI consulted, recommendations appreciated. Bilateral pleural effusions, secondary to volume overload Continue lasix Continue oxygen as needed Hypophosphatemia Hypomagnesemia Replace per protocol Elevated troponin likely due to demand mismatch Echocardiogram done, mild pulmonary hypertension, otherwise normal. Cardiology consult as an outpatient. Acute kidney injury, Resolved. Likely 2/2 hypovolemia from vomiting and decreased PO Continue to monitor. Avoid nephrotoxic agents Colon resection w/ colostomy Stable Continue colostomy care as normal COPD Stable; Continue oxygen as needed, breathing treatments as needed Hypothyroid Stable, continue home medications Hypertension Stable, will restart home medications once tolerating PO Will use IV agents if needed till then Breast ca hx w/ B/L Mastectomy Stable Obesity, BMI 30.6 Severe protein calorie malnutrition Continue supplementation DVT Prophylaxis: Lovenox GI Prophylaxis: Protonix Diet: GI soft Disposition: Patient was declined for inpatient rehab as patient not working with Physical therapy. She was accepted at a [facility], [place]. She was discharged and ready to go over there when it seems that patient decided that she would like to go home instead and she would like to pursue hospice care. Had a lengthy discussion with patient and son at bedside. Patient decided that she would like ot pursue hospice as she would like to go back to her home. SW consult placed for hospice evaluation.
[2018-12-15] MEDS: HYDRALAZINE HCL 20 MG/ML VIAL IV PRN (01:05)
[2018-12-15] MEDS: AMYLASE/LIPASE/PROTEASE CAP PO SCH ×2 (07:30→11:30)
[2018-12-15] MEDS: LEVOTHYROXINE SOD 0.112 MG TAB PO SCH (07:49)
[2018-12-15] MEDS: IPRATROPIUM BROM 0.5MG/2.5ML NEB PRN (08:33)
[2018-12-15] MEDS: BUDESONIDE 0.25 MG/2 ML NEB NEB SCH (08:33)
[2018-12-15] MEDS: CALCIPOTRIENE 0.005% TOP SCH (09:00)
[2018-12-15] MEDS: ENSURE ENLIVE 237 ML CAN PO SCH (09:00)
[2018-12-15] MEDS: Meropenem 1,000 MG in NA CHLORIDE 0.9% 100 ML IV SCH (09:11)
[2018-12-15] MEDS: DILTIAZEM HCL 180 MG SR CAP PO SCH (09:14)
[2018-12-15] MEDS: LOSARTAN POTASSIUM 50 MG TABLET PO SCH (09:15)
[2018-12-15] MEDS: hydroCHLOROthiazide 25 MG TAB PO SCH (09:15)
[2018-12-15] MEDS: ENOXAPARIN 30 MG/0.3 ML SQ SCH (09:16)
--- NOTE | 2018-12-15 11:01 | P.PN ---
Subjective Date of Service: 12/15/18 Primary Care Provider: Dr. 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 Bolaños whom will address with patient and family - encourage PO intake with ensure supplement
[2018-12-15] MEDS: ARFORMOTEROL TARTRATE 15 MCG/2 ML VIAL.NEB NEB SCH (11:41)
[2018-12-15 11:47] VITALS: O2SAT 96
[2018-12-15 13:11] VITALS: BP 137/62; TEMP 98
--- NOTE | 2018-12-15 13:15 | P.PN ---
Subjective Date of Service: 12/15/18 Primary Care Provider: Dr. 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 ) Physical Examination - Vital Signs Temperature: 98.0 F Blood Pressure: 137/62 Pulse: 80 Respirations: 16 Pulse Ox (%): 95 Assessment And Plan - Current Problems (Diagnosis) (1) Acute pancreatitis Current Visit: Yes Status: Active Comment: WBC up to 15. No abdominal pain. Etiology of AP not clear. She is s/p lap cody years ago, no EtOH, TGs normal. MRCP did show narrowing of the distal CBD but thought due to acute pancreatitis. Occult neoplasia or other? (2) ZAN (acute kidney injury) Current Visit: Yes Status: Acute Comment: Cr now normal. (3) Elevated troponin Current Visit: Yes Status: Acute (4) Hypertension Current Visit: Yes Status: Chronic Qualifiers: Hypertension type: essential hypertension Qualified Code(s): I10 - Essential (primary) hypertension (5) History of colon resection Current Visit: No Status: Chronic - Plan REC: 1) check CXR & U/A 2) continue IV antibiotics & IVFs 3) continue pancreatic enzyme supplements with diet 4) await CA19-9 & CA125
--- NOTE | 2018-12-15 13:20 | P.PN ---
Subjective Date of Service: 12/15/18 Primary Care Provider: Dr. 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 She is going to [facility] today. U/A and CXR are without new significant findings / worsening.) Review of Systems 10-point ROS is otherwise unremarkable General: Weakness (Improved. ) Physical Examination - Vital Signs Temperature: 98.0 F Blood Pressure: 137/62 Pulse: 80 Respirations: 16 Pulse Ox (%): 95 - Physical Exam General: Alert, In no apparent distress, Oriented x3, Oriented x2, Cooperative HEENT: Atraumatic, Normocephalic, PERRLA, EOMI Neck: Supple Respiratory: Normal air movement Cardiovascular: Normal pulses Gastrointestinal: Soft and benign (obese), No tenderness, No rebound, No guarding Neurological: Normal speech Assessment And Plan - Current Problems (Diagnosis) (1) Acute pancreatitis Current Visit: Yes Status: Active Comment: WBC up to 15. No abdominal pain. Etiology of AP not clear. She is s/p lap cody years ago, no EtOH, TGs normal. MRCP did show narrowing of the distal CBD but thought due to acute pancreatitis. Occult neoplasia or other? (2) ZAN (acute kidney injury) Current Visit: Yes Status: Acute Comment: Cr now normal. (3) Elevated troponin Current Visit: Yes Status: Acute (4) Hypertension Current Visit: Yes Status: Chronic Qualifiers: Hypertension type: essential hypertension Qualified Code(s): I10 - Essential (primary) hypertension (5) History of colon resection Current Visit: No Status: Chronic - Plan REC: 1) continue incentive spirometry 2) continue IV antibiotics & IVFs 3) continue pancreatic enzyme supplements with diet 4) await CA19-9 & CA125 5) discharge soon 6) GI clinic f/u in 1-2 weeks
--- NOTE | 2018-12-23 11:48 | P.DS ---
Admission Date: 12/03/18 Discharge Date: 12/15/18 Primary Care Provider: Dr. 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 Whalen General Surgery, Dr. 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 Per patient, pain started last night. Describes it as sharp, acute, started at rest, across epigastric area w/ no radiation. Associated with nausea and vomiting. Denies any increased sob, chest pain, dizziness, headache, vision changes, syncopal/presyncopal episodes, diarrhea/constipation or complaints. In the ER: she was bradycardic (asymptomatic), other vital signs were stable. Labs were remarkable for a WBC count of 21.4 with a left shift, sodium of 135, creatinine of 1.67, Troponin [place] 0.07[place] [id number]. Her procal and lactate were normal. Her CT scan was remarkable for mild subsegmental atelectasis and mild to moderate pancreatitis. She recieved IV zosyn prior to her non contrast CT, IVF and IV morphine 2 mg. Zofran was held to her bradycardia and she is allergic to phenergan. At the time of my exam, pt was AAOx3, in mild-mod distress, did have some active non bilious non bloody vomiting. She was bradycardic (still asymptomatic ) and otherwise vital signs were stable. Hospital Course: Patient was admitted with acute pancreatitis. CT of abdomen did show necrosis of pancreas. She was kept NPO. GI was consulted. MRCP was done, which showed strictures, likely narrowing of CBD from pancreatitis. General surgery was also consulted. She was started on IV meropenem and her WBC count did finally respond. Her lipase levels also normalized. This pancreatitis episode seems to be on unclear etiology. The stricture and CBD noted on MRCP could be possibly secondary to neoplasia. CA-125 was noted to be elevated. I spoke to the patient and son at bedside regarding this. Discussed that this episode could be secondary to underlying neoplasm, this could be in the ovaries as well. Patient and son both stated that patient would like to get stronger first , at a rehab facility and then they would like a follow up in regards to this as an outpatient. No further workup to be pursued during this hospitalization. Her stay was complicated with bilateral pleural effusions, secondary to fluid overload. She was diuresed with Lasix. Her breathing clinically improved. She was provided oxygen as needed. Her electrolytes were monitored and replaced as needed, per protocol. She had elevated troponins as well, which was likely secondary to demand mismatch. An ECHO was done, which did show mild pulmonary hypertension, otherwise normal. She had ZAN on admission, likely secondary to the volume depletion. Her ZAN resolved with IV hydration. She has a history of colon resection with a colostomy bag. This remained stable throughout the stay. For her COPD , she was given breathing treatments as needed along with oxygen as needed. For her Hypothyroid, she remained stable on her home medications. Hypertension remained stable. No changes made to HTN medications on discharge. She was stable in regards to her Breast ca hx w/ B/L Mastectomy history. She was with severe protein calorie malnutrition and debility along with generalized weakness. She was provided with supplementation and physical therapy. She was then referred for assisted facility placement and further rehab. She was accepted at a assisted facility, [place]. She was discharged and ready to go over there when it seems that patient decided that she would like to go home instead and she would like to pursue hospice care. Had a lengthy discussion with patient and son at bedside. Patient decided that she would like to pursue hospice as she would like to go back to her home. SW was re-consulted for hospice evaluation. The next day, patient decided that she actually wanted to go to [facility]. Hospice evaluation was cancelled and patient was discharged to [facility] in a stable manner. Patient does have a poor overall prognosis. Vital Signs/Physical Exam: Temp Pulse Resp BP Pulse Ox 98.0 F 80 16 137/62 95 12/15/18 13:21 12/15/18 13:21 12/15/18 13:21 12/15/18 13:21 12/15/18 13:21 General: Alert, In no apparent distress, Oriented x3, Other (Ill-appearing, elderly) Neck: Supple, JVD not distended Respiratory: Clear to auscultation bilaterally, Normal air movement Cardiovascular: Regular rate/rhythm, Normal S1 S2 Gastrointestinal: Normal bowel sounds, No tenderness Laboratory Data at Discharge: WBC 15.1 K/uL (4.3-10.9) H D 12/13/18 11:55 Hgb 11.6 g/dL (12.0-15.0) L 12/13/18 11:55 Hct 35.1 % (36.0-45.0) L 12/13/18 11:55 Plt Count 387 K/uL (152-406) 12/13/18 11:55 PT 14.0 SECONDS (9.5-12.5) H 12/03/18 06:40 INR 1.19 12/03/18 06:40 Sodium 132 mmol/L (136-145) L 12/13/18 05:39 Potassium 4.1 mmol/L (3.5-5.1) 12/13/18 05:39 BUN 12 mg/dL (7-18) 12/13/18 05:39 Creatinine 0.84 mg/dL (0.55-1.3) 12/13/18 05:39 Glucose 99 mg/dL (74-106) 12/13/18 05:39 Phosphorus 2.7 mg/dL (2.5-4.9) 12/13/18 05:39 Magnesium 1.9 mg/dL (1.8-2.4) 12/13/18 05:39 Total Bilirubin 0.3 mg/dL (0.2-1.0) 12/11/18 05:40 AST 49 U/L (15-37) H 12/11/18 05:40 ALT 48 U/L (12-78) 12/11/18 05:40 Alkaline Phosphatase 61 U/L (45-117) 12/11/18 05:40 Troponin I 0.08 ng/mL (0.0-0.045) H 12/04/18 10:48 Triglycerides 86 mg/dL (<150) 12/04/18 05:09 Cholesterol 149 mg/dL (<200) 12/04/18 05:09 HDL Cholesterol 42 mg/dL (40-60) 12/04/18 05:09 Cholesterol/HDL Ratio 3.55 12/04/18 05:09 Amylase 42 U/L (25-115) 12/06/18 05:45 Lipase 102 U/L (73-393) 12/12/18 05:36 Home Medications: Arformoterol Tartrate [Brovana] 15 mcg IH BID 11/16/12 Budesonide [Pulmicort] 0.5 mg IH BID 11/16/12 Levothyroxine [Synthroid*] 0.112 mg PO [id number] 11/16/12 Albuterol Inhaler [Ventolin Inhaler*] 2 puff IH Q6H PRN 05/09/13 Diltiazem HCl [Taztia Xt] 360 mg PO DAILY 05/09/13 Losartan/Hydrochlorothiazide [Losartan-Hctz 100-25 mg Tab] 1 tab PO DAILY Calcipotriene [Dovonex] 60 gm TP DAILY 12/08/18 Arformoterol Tartrate [Brovana] 15 mcg NEB BIDRESP vial.neb 12/14/18 Budesonide [Pulmicort*] 0.25 mg NEB BIDRESP amp 12/14/18 Ensure Enlive 237 ml PO TID can 12/14/18 Diet: AHA Activity: Ad woodrow Followup: Darryl Herrmann MD [ACTIVE - CAN ADMIT] - David Whalen MD [ASSOCIATE-ACTIVE - CAN ADMIT] - Time spent managing pt's care (in minutes): 55
== END 2018-12-15 14:04 | DRG 438 ==
LOC: ER 06:36 → ERHOLD 08:54 → 4TH 09:36
PROVIDERS: ADMIT Family Medicine; ATTEND Family Medicine
DX: K85.91 Acute pancreatitis with uninfected necrosis, unspecified (principal); E43 Unspecified severe protein-calorie malnutrition; N17.9 Acute kidney failure, unspecified; J90 Pleural effusion, not elsewhere classified; E86.1 Hypovolemia; E87.70 Fluid overload, unspecified; E83.39 Other disorders of phosphorus metabolism; E83.42 Hypomagnesemia; I10 Essential (primary) hypertension; Z93.3 Colostomy status; J44.9 Chronic obstructive pulmonary disease, unspecified; I27.20 Pulmonary hypertension, unspecified; R53.81 Other malaise; E03.9 Hypothyroidism, unspecified; E66.9 Obesity, unspecified; L43.9 Lichen planus, unspecified; Z68.30 Body mass index [BMI] 30.0-30.9, adult; Z79.890 Hormone replacement therapy; Z79.51 Long term (current) use of inhaled steroids; Z85.3 Personal history of malignant neoplasm of breast; Z85.820 Personal history of malignant melanoma of skin; Z90.49 Acquired absence of other specified parts of digestive tract; Z90.13 Acquired absence of bilateral breasts and nipples
CPT/HCPCS: 36415; 71045; 74160; 74176; 74181; 76700; 80048; 80053; 80061; 80076; 81001; 82150; 82962; 82977; 83605; 83690; 83735; 83880; 84100; 84134; 84145; 84484; 85025; 85610; 86140; 86301; 86304; 87040; 87070; 87205; 92526; 93005; 93306; 93970; 94640; 94760; 96365; 96375; 97110; 97163; 97166; 97530; 99285; J0360; J0694; J1170; J1650; J1940; J2185; J2270; J2405; J2543; J3475; J7030; J7605; Q9967